=== PATIENT | male | born 1940 | race Caucasian/White ===

== ENCOUNTER 2021-11-09 08:42 | Inpatient (IN) | payer MEDICARE, OTHER, SELFPAY ==
[2021-11-09] VITALS (29 sets, daily range): BP systolic 90–168; BP diastolic 53–89; PULSE 58–92; RESP 14–20; TEMP 36.1–38.4; O2SAT 94–99; BMI 27.1; BMI 27.2
--- NOTE | 2021-11-09 | CA_ITS ---
APPROVED REPORT EXAM: Comprehensive 2D, Doppler, and color-flow Echocardiogram Orthopedic Brace Maker: Patricia Colon, RCS, RVS Ht: 5 ft 11 in Wt: 195lbs BSA: 2.09 BP: 110/62 mmHg Indications: Elevated tropnin, Weakness, Murmur, Anemia 2D Dimensions LVOT 1.96 cm (M/F) 1.5-2.5 LA Volume 37.20 mL LA Volume Index 17.80 mL/m2 (M/F) 16-34 M-Mode Dimensions RVDd 2.82 cm (0.9-2.6) LA Diam 4.26 cm (1.9-4.0) LVDd 5.35 cm (3.5-5.7) Ao Diam 4.39 cm (2.0-3.7) LVDs 3.26 cm (3.5-5.7) IVSd 1.17 cm (0.6-1.1) PWd 1.21 cm (0.6-1.1) EF (Teich) 69.10% EPSs 0.38 cm FS 39.10% EDV (Teich) 138.30 mL TAPSE 2.02 (<1.7) ESV (Teich) 42.80 mL LV Diastology E Decel Time 343.00 (160-240 msec) E/A Ratio 0.55 MED E' 6.20 (< 7 cm/sec) MED A' 13.40 cm/s E'/MED E' Ratio 6.82 (>14) LAT E' 5.70 (<10 cm/sec) LAT A' 10.30 cm/s E/LAT E' Ratio 7.42 (>14) Aortic Valve LVOT Max 104.00 (70-110 cm/s) LVOT VTI 21.79 cm AoV Peak Joel. 139.00 (50-130 cm/s) AI PHT 487.00 ms AO Peak GR. 7.70 mmHg AO Mean GR. 4.30 (<5 mmHg) AO VTI 30.80 (18-25 cm) MYLENE (VTI) 2.13 (2.5-4.5 cm2) Mitral Valve MV A Velocity 77.00 (40-130 cm/s) E/A Ratio 0.55 MV Decel. Time 343.00 (160-240 ms) Pulmonary Valve PV Peak Velocity 74.00 (50-150 cm/s) Tricuspid Valve TR P. Velocity 236.00 cm/s RAP Estimate 10.00 mmHg RVSP 32.20 mmHg Left Ventricle Left atrium is mildly enlarged, left ventricle is normal size, mild concentric left ventricular hypertrophy, visually estimated ejection fraction 55% with no regional wall motion abnormality, grade 1 diastolic dysfunction seen without tissue Doppler evidence of raise left atrial pressure. Right Ventricle Right atrium and right ventricle are normal size and contractility. Aortic Valve Aortic valve is minimally thickened and fibrosed, there is no aortic stenosis, there is trace aortic insufficiency. Mitral Valve Mitral valve grossly normal, there is trace mitral regurgitation. Tricuspid Valve Tricuspid valve grossly normal, there is trace tricuspid regurgitation, tricuspid regurgitation jet velocity is inadequate for calculation of the right ventricular systolic pressure. Pulmonic Valve Pulmonic valve is poorly visualized. Great Vessels Aortic root is normal size. Inferior vena cava is poorly visualized. Pericardium No significant pericardial effusion. Conclusion 1. Mildly enlarged left atrium, normal left ventricular size, mild concentric left ventricular hypertrophy, visually estimated ejection fraction 55% with no regional wall motion abnormality, grade 1 diastolic dysfunction seen without tissue Doppler evidence of raise left atrial pressure. 2. Trace aortic, mitral and tricuspid regurgitation. 3. No significant pericardial effusion. 4. Inferior vena cava is poorly visualized. Electronically signed by : Ron Payne MD 11/09/2021 20:02:44
--- NOTE | 2021-11-09 | IR_ITS ---
APPROVED REPORT Patient Location: Inpatient Heading Machine Operator: ALIN Kent RT (R) PROCEDURES Left heart catheterization Left ventriculogram Selective coronary angiogram Drug-eluting stent deployment to the proximal mid and distal left main artery Drug-eluting stent deployment to the proximal and mid circumflex artery Drug-eluting stent deployment to the proximal first obtuse marginal artery Drug-eluting stent deployment to the proximal dominant right coronary followed by drug-eluting stent deployment to the distal dominant right coronary INDICATION Acute non-ST elevation myocardial infarction, Coronary artery disease Informed consent was obtained prior to the procedure. COMPLICATIONS NONE Estimated Blood Loss: LESS THAN 10 ML TECHNIQUE One percent lidocaine used to anesthetize the right anterior aspect of the wrist. The right radial artery was accessed via the Seldinger technique. A 6 Irish sheath was placed in the right radial artery. 2.5 mg of verapamil, 800 mcg of nitroglycerin, 1mg Lidocaine and 5000 U Heparin were given through the arterial sheath. The papa catheter was also used to perform left heart catheterization, left ventriculogram and selective coronary angiogram. At the end of the procedure therapeutic heparin was administered giving a therapeutic ACT and the guide catheter was placed in the left main artery. A Choice PT extra-support wire was placed into the ramus intermedius for guide support followed by an additional Choice PT in the true circumflex artery. A 2.5 x 12 mm resolute Andrea stent was deployed at 20 artemio reducing the severe stenosis to 0%. The wire was pulled back and placed into a large first obtuse marginal artery where predilatation was performed using a 2.5 mm balloon. An additional 2.5 x 22 mm resolute Andrea stent was then placed distal to the first stent yet still overlapping it extending into the first obtuse marginal artery and deployed at 22 artemio. Excellent angiographic results were obtained. Now a 3.5 x 18 mm resolute Andrea stent was placed in the distal left main artery extending into the proximal circumflex artery and deployed at 20 artemio. A 3 mm x 8 mm stent was then placed between the 3.5 and the first 2.5 mm stent and deployed at 20 artemio to connect the 2 stents to make sure there is no edge stent restenosis. A 4 x 8 mm balloon was then placed in the distal left main artery and deployed at 20 artemio and pulled back and placed into the proximal portion of the stent at 20 artemio. Excellent angiographic results were obtained with JANETT-3 flow being present before and after procedure. The guide catheter was then pulled back and placed into the right coronary artery where the same wire was placed distally. A 3.5 x 18 mm resolute [place] stent was placed distally and deployed at 20 artemio reducing the severe stenosis to 0%. An additional 3.5 x 18 mm resolute [place] stent was then placed proximally and deployed at 20 artemio reducing the severe stenosis to 0%. Excellent angiographic results were obtained with JANETT-3 flow being present before and after the procedure. At the end of procedure the apparatus was removed the sheath was removed and hemostasis was achieved using TR banding patient was transferred to the postop putting in stable condition ANGIOGRAPHIC RESULTS The left main artery Has a distal 70 to 80% stenosis The left anterior descending artery Ostially occluded but fills entirely via large [id number] collaterals from the dominant right coronary The circumflex artery Is nondominant yet still large and gives rise to a high small ramus intermedius. The circumflex artery has a proximal concentric 90% stenosis. It gives rise to a large first obtuse marginal artery which a
--- NOTE | 2021-11-09 08:41 | ECG_ITS ---
APPROVED REPORT Exam: Resting ECG HR:68 bpm ECG Measurements Heart Rate 68 AXES ND 144 P 13 QRSd 88 QRS -16 QT 426 T 0 QTc 442 Conclusion SINUS RHYTHM NONSPECIFIC T-WAVE ABNORMALITY BORDERLINE ECG UNCONFIRMED REPORT Electronically signed by : Yehuda Huerta MD 11/12/2021 16:10:21
--- NOTE | 2021-11-09 08:48 | HMH.EDGENADL ---
ED Disposition Clinical Impression: Elevated troponin, Weakness, Multiple falls, Parkinson disease Rhabdomyolysis Qualifiers: Rhabdomyolysis type: traumatic Encounter type: initial encounter Qualified Code(s): T79.6XXA - Traumatic ischemia of muscle, initial encounter Disposition: Admitted as Observation Condition on Discharge: Fair Referrals: Provider,Referral, [Primary Care Provider] - - Critical Care Critical Care Time: No Attestation: On , the high probability of a clinically significant, sudden or life threatening deterioration of the following system(s) required my full and direct attention, intervention and personal management. The time I documented below is in addition to time spent performing reported procedures but includes the following listed in this critical care notation. Medical Decision Making - Jules Inquiry Pt receiving controlled substance: No Vital Signs: 11/09/21 08:42 Temperature 98.5 F Temperature Source Oral Pulse Rate [Left Radial] 74 Respiratory Rate 16 Blood Pressure [Right Arm] 110/62 Blood Pressure Mean [Right Arm] 78 Blood Pressure Source [Right Arm] Automatic Cuff Blood Pressure Position [Right Arm] Sitting 02 Sat by Pulse Oximetry 94 L Oxygen Delivery Method Room Air - Lab Data Lab Results 11/09/21 08:55: WBC 7.4, RBC 3.68 L, Hgb 12.2 L, Hct 37.5 L, MCV 101.9 H, MCH 33.1 H, MCHC 32.4, RDW 13.2, Plt Count 191, MPV 8.2, Neut % (Auto) 77.1, Lymph % (Auto) 15.0, [place] % (Auto) 7.1, Eos % (Auto) 0.1, Baso % (Auto) 0.7, Neut # (Auto) 5.7, Lymph # (Auto) 1.1, [place] # (Auto) 0.5, Eos # (Auto) 0.0, Baso # (Auto) 0.1 11/09/21 08:55: Sodium 133 L, Potassium 4.0, Chloride 101, Carbon Dioxide 26, Anion Gap 10.0, BUN 22 H, Creatinine 1.10, Estimated Creat Clear 66, Estimated GFR 64, Est GFR ( Amer) 78, Glucose 137 H, Calcium 8.1 L, Total Bilirubin 0.8, AST 93 H, ALT 11 L, Alkaline Phosphatase 103, Total Creatine Kinase 1486 H*, Troponin I 0.11 H, Total Protein 6.9, Albumin 3.7, Globulin 3.2, Albumin/Globulin Ratio 1.2 11/09/21 08:55: SARS-CoV-2 (PCR) Not detected, Influenza A Untype (PCR) Not detected, Influenza Type B (PCR) Not detected 11/09/21 09:19: Urine Color Yellow, Urine Appearance Clear, Urine pH 6.0, Ur Specific [place] <= 1.005, Urine Protein Negative, Urine Glucose (UA) Negative, Urine Ketones Negative, Urine Blood Negative, Urine Nitrate Negative, Urine Bilirubin Negative, Urine Urobilinogen 0.2, Ur Leukocyte Esterase Negative, Urine RBC None, Urine WBC 3-5, Ur Squamous Epith Cells 5-10, Urine Bacteria None 11/09/21 09:19: Lactate 1.3 Result diagrams: 11/09/21 08:55 11/09/21 08:55 Orders (Tests/Meds): ED MEDICATIONS Generic Name Dose Route Start Last Admin Trade Name Freq PRN Reason Stop Dose Admin Sodium Chloride 1,000 mls @ 100 mls/hr 11/09/21 11:15 Sod Chlor 0.9% 1000ml Bag IV 12/09/21 11:14 .Q10H ROMMEL Discontinued Medications Generic Name Dose Route Start Last Admin Trade Name Freq PRN Reason Stop Dose Admin Sodium Chloride 1,000 ml 11/09/21 09:41 11/09/21 10:02 Sodium Chloride 0.9% 1000ml Bag IV 11/09/21 09:42 1,000 ml BOLUS ONE Administration ORDERS Category Date Time Status Consult to Cardiology [CONS] Routine Cons 11/09/21 11:05 Active Consult to Urology [CONS] Routine Cons 11/09/21 11:05 Active BMP [Basic Metabolic Panel] AMLAB Lab 11/10/21 06:00 Ordered CPK [Creatine Kinase] AMLAB Lab 11/10/21 06:00 Ordered TSH [Thyroid Stimulating Hormone] Stat Lab 11/09/21 10:48 Ordered Troponin I Q3H Lab 11/09/21 10:48 Ordered Troponin I Q3H Lab 11/09/21 15:15 Ordered Blood Culture Stat Micro 11/09/21 09:35 Received CA echo doppler complete Stat Y 11/09/21 11:05 Ordered - Radiology Data #1 Image(s): Chest, Pelvis Image Reviewed: Yes I have reviewed radiologist's interpretation Procedure(s): XR chest portable Accession Number(s): [id number] cc: Milton Shepard MD; Provider,Referral ~ FI
--- NOTE | 2021-11-09 09:08 | XR_ITS ---
FINAL REPORT CLINICAL HISTORY: falls FINDINGS: PELVIS A single view demonstrates no acute fracture or dislocation. There are moderate degenerative changes of the hips. There is moderate to severe degenerative change in the lower lumbar spine. IMPRESSION: Degenerative changes without acute fracture. Reviewed, Interpreted and Dictated by Milton Shepard III, MD Transcribed by Sudha Jackson Authenticated by Milton Shepard III, MD on 11/09/2021 10:37:[address] [facility]
--- NOTE | 2021-11-09 09:08 | CT_ITS ---
FINAL REPORT CLINICAL HISTORY: multiple falls, weak FINDINGS: Axial images of the head were obtained without contrast. Coronal reformatted images were also obtained. This study was performed with techniques to keep radiation doses as low as reasonably achievable (ALARA). Individualized dose reduction techniques using automated exposure control or adjustment of mA and/or kV according to the patient's size were employed. There is generalized age-appropriate atrophy. Periventricular low-attenuation areas are seen consistent with moderate chronic ischemic changes. There is left frontal encephalomalacia. There is no evidence of intracranial hemorrhage or mass. There is no evidence of acute infarct. There is no evidence of shift of the midline structures. No skull abnormality is seen on the bone window images. There is mild mucosal thickening of the ethmoid air cells. IMPRESSION: Atrophy and moderate periventricular chronic ischemic changes. No acute intracranial abnormality identified. Reviewed, Interpreted and Dictated by Milton Shepard III, MD Transcribed by Sudha Jackson Authenticated by Milton Shepard III, MD on 11/09/2021 10:37:54 AM [facility]
--- NOTE | 2021-11-09 09:08 | XR_ITS ---
FINAL REPORT CLINICAL HISTORY: falls, possible fever, weak FINDINGS: SINGLE VIEW CHEST The heart is normal in size. The mediastinum is unremarkable. There is bibasilar atelectasis. There is no pneumothorax. IMPRESSION: Bibasilar atelectasis. Reviewed, Interpreted and Dictated by Milton Shepard III, MD Transcribed by Sudha Jackson Authenticated by Milton Shepard III, MD on 11/09/2021 10:37:57 AM [facility]
--- NOTE | 2021-11-09 09:15 | CT_ITS ---
FINAL REPORT CLINICAL HISTORY: falls, bruised back FINDINGS: Axial CT images of the thoracic spine were obtained without contrast. Sagittal and coronal reformatted images were also obtained. This study was performed with techniques to keep radiation doses as low as reasonably achievable (ALARA). Individualized dose reduction techniques using automated exposure control or adjustment of mA and/or kV according to the patient's size were employed. There is no evidence of fracture. Moderate degenerative changes are present. Multilevel osteophytes are noted. There is mild rightward curvature. There is no significant central canal stenosis. IMPRESSION: Moderate degenerative changes without acute fracture. Reviewed, Interpreted and Dictated by Milton Shepard III, MD Transcribed by Sudha Jackson Authenticated by Milton Shepard III, MD on 11/09/2021 10:37:55 AM [facility]
--- NOTE | 2021-11-09 09:15 | CT_ITS ---
FINAL REPORT CLINICAL HISTORY: falls, bruised back FINDINGS: Axial CT images of the cervical spine were obtained without contrast. Sagittal and coronal reformatted images were also obtained. This study was performed with techniques to keep radiation doses as low as reasonably achievable (ALARA). Individualized dose reduction techniques using automated exposure control or adjustment of mA and/or kV according to the patient's size were employed. There is no evidence of fracture or dislocation. Moderate degenerative changes are present. There is multilevel neural foraminal narrowing. There is a chronic calcification posterior to C5. IMPRESSION: Degenerative changes without acute fracture. Reviewed, Interpreted and Dictated by Milton Shepard III, MD Transcribed by Sudha Jackson Authenticated by Milton Shepard III, MD on 11/09/2021 10:37:[address] [facility]
--- NOTE | 2021-11-09 09:15 | CT_ITS ---
FINAL REPORT CLINICAL HISTORY: falls, bruised back FINDINGS: Axial imaging of the lumbar spine was obtained without contrast. Sagittal and coronal reformatted images were also obtained and reviewed.This study was performed with techniques to keep radiation doses as low as reasonably achievable (ALARA). Individualized dose reduction techniques using automated exposure control or adjustment of mA and/or kV according to the patient's size were employed. There is no fracture. Moderate and severe degenerative changes are present. There is disc space narrowing, osteophytes, facet arthropathy, and vacuum phenomenon at multiple levels. There is multilevel neural foraminal narrowing, greatest at L4-5 and L5-S1. A 5 mm right renal stone is identified. IMPRESSION: Multilevel degenerative change without acute bony abnormality. Reviewed, Interpreted and Dictated by Milton Shepard III, MD Transcribed by Sudha Jackson Authenticated by Milton Shepard III, MD on 11/09/2021 10:37:[address] [facility]
[2021-11-09 09:25] LABS: Coronavirus 19, PCR Not Detected (NotDetected); Influenza A, PCR Not Detected (NotDetected); Influenza B, PCR Not Detected (NotDetected)
[2021-11-09 09:27] LABS: Chloride 101 mmol/L (98-107); Sodium 133 mmol/L (136-145)
[2021-11-09 09:29] LABS: Alanine Aminotransferase 11 U/L (12-78); Aspartate Amino Transferase 93 U/L (17-59); Blood Urea Nitrogen 22 mg/dl (9-20); Creatinine Clearance Estimated 66 mL/min (50-200); Estimated Glomerular Filt Rate 64 ml/min (>60); GFR (African American) 78 ML/MIN (>60)
[2021-11-09 09:30] LABS: Albumin Level 3.7 g/dl (3.5-5.0); Albumin/Globulin Ratio 1.2 (1.1-1.8); Alkaline Phosphatase 103 U/L (38-126); Bilirubin,Total 0.8 mg/dl (0.2-1.3); Calcium 8.1 mg/dl (8.4-10.2); Carbon Dioxide 26 mmol/L (22.0-30.0); Creatine Kinase 1486 U/L (55-170); Globulin 3.2 g/dL (1.3-3.2); Glucose 137 mg/dl (74-100); Total Protein,Serum 6.9 g/dl (6.3-8.2)
[2021-11-09 09:42] LABS: Troponin I 0.11 ng/ml (0.00-0.034)
[2021-11-09 09:44] LABS: Basophils # 0.1 K/mm3 (0-0.2); Basophils % 0.7 % (0.1-2.0); Eosinophils % 0.1 % (0.1-12.0); Hematocrit 37.5 % (42.0-52.0); Hemoglobin 12.2 g/dL (14.1-18.0); Lymphocytes # 1.1 K/mm3 (0.7-4.5); Mean Corpuscular HGB Conc 32.4 g/dL (31.8-35.4); Mean Corpuscular Hemoglobin 33.1 pg (27.0-31.2); Mean Corpuscular Volume 101.9 fl (80-94); Mean Platelet Volume 8.2 fl (7.4-10.4); Monocytes # 0.5 K/mm3 (0.1-1.0); Monocytes % 7.1 % (1.7-9.3); Neutrophils # 5.7 K/mm3 (1.8-7.8); Neutrophils % 77.1 % (37.0-80.0); Platelet Count 191 K/mm3 (142-424); Red Blood Count 3.68 M/mm3 (4.60-6.20); Red Cell Distribution Width 13.2 % (11.5-17.5); White Blood Count 7.4 K/mm3 (4.8-10.8)
[2021-11-09 09:47] LABS: Microscopic,Cath URINE MICROSCOPIC (MICROSCOPIC)
[2021-11-09 09:50] LABS: Appearance,Urine/Cath CLEAR (Clear); Bilirubin,Cath Negative (Negative); Blood, Urine/Cath Negative (Negative); Color,Urine/Cath YELLOW (Yellow); Glucose,Urine/Cath (UA) Negative (Negative); Ketones,Urine/Cath Negative (Negative); Leukocyte Esterase,Cath Negative (Negative); Nitrate,Cath Negative (Negative); Protein,Urine/Cath Negative (Negative); Specific Gravity, Urine/Cath <= 1.005 (1.005-1.030); Urobilinogen,Cath 0.2 EU/dl (0.2)
[2021-11-09 10:19] LABS: Lactic Acid 1.3 mmol/L (0.7-2.1)
--- NOTE | 2021-11-09 10:54 | PC.NURSE ---
Called Dr Carter for consult on patient, he was with patient, and will call back.
[2021-11-09 11:46] LABS: Troponin I 0.09 ng/ml (0.00-0.034)
--- NOTE | 2021-11-09 11:50 | PC.NURSE ---
Martín to see pt, tired to talk to , unable to find in the waiting room
--- NOTE | 2021-11-09 11:54 | HMH.CNCARD ---
History of Present Illness Consult date: 11/09/21 Requesting physician: Pierre Hassan Chief complaint: fall History of present illness: This is a 81-year-old gentleman who presented to the emergency department after a falling episode. The patient was brought in via ambulance. He does have Parkinson's disease. The patient is very lethargic when I am in the room and is not answering majority of my questions. He does report that he is having no chest pain no chest pressure and no shortness of breath. He also denied having any lower extremity edema. He also denied having any fever, chills, nausea, vomiting, diarrhea, PND or orthopnea. He was unable to answer any of my questions about his history. Most of his history is gathered from his medical records. His states that for the last 4 days he has been having difficulty ambulating and really weak and could not stand on his own. This was a change for him. Today he was walking to the bathroom and using a small table for support when it broke and he fell. His reported that he has fallen four times in the last month. Upon arrival to the emergency department the patient is found to have an elevated troponin at 0.11 consistent with a non-ST elevation myocardial infarction. [facility] History I have reviewed the patient's past medical history: Yes Medical History: Reports:: Coronary Artery Disease (2 stents), Hyperlipidemia, Hypertension *Have you ever received a pneumonia vaccine?: Yes *Have you received a flu vaccine this season?: Yes Other Medical History: Reports: Thyroid Disease, Other (Parkinson's Disease) Other Surgeries: Yes: No Previous Surgery - *Social History Smoking Status: Never smoker Alcohol Intake: never *Occupational Status:: other *Travel in the last 8 weeks: None Family Hx:: No significant family history Meds Home Medications Medication Instructions Recorded Confirmed Type Carbidopa/Levodopa [Carbidopa-Levo 2 each PO QID 11/09/21 11/09/21 History ER 25-100 Tab] Clopidogrel Bisulfate [Clopidogrel 75 mg PO DAILY 11/09/21 11/09/21 History 75mg Tab] Gabapentin 300 mg PO TID 11/09/21 11/09/21 History Levothyroxine Sodium [Euthyrox] 150 mcg PO DAILY 11/09/21 11/09/21 History Loratadine 10 mg PO DAILY 11/09/21 11/09/21 History Pramipexole Di-HCl [Mirapex 0.25 mg PO BID 11/09/21 11/09/21 History 0.125mg tablet] Sildenafil Citrate 50 mg PO DAILY PRN 11/09/21 11/09/21 History Tizanidine HCl [Zanaflex 4mg 4 mg PO BID 11/09/21 11/09/21 History tablet] Allergies Allergy/AdvReac Type Severity Reaction Status Date / Time No Known Allergies Allergy Verified 11/09/21 09:26 Exam Vital signs and Labs for Last 24 Hours: Temp Pulse Resp BP Pulse Ox 98.5 F 74 16 110/62 94 L 11/09/21 08:42 11/09/21 08:42 11/09/21 08:42 11/09/21 08:42 11/09/21 08:42 Laboratory Results - last 24 hr 11/09/21 08:55: WBC 7.4, RBC 3.68 L, Hgb 12.2 L, Hct 37.5 L, MCV 101.9 H, MCH 33.1 H, MCHC 32.4, RDW 13.2, Plt Count 191, MPV 8.2, Neut % (Auto) 77.1, Lymph % (Auto) 15.0, [place] % (Auto) 7.1, Eos % (Auto) 0.1, Baso % (Auto) 0.7, Neut # (Auto) 5.7, Lymph # (Auto) 1.1, [place] # (Auto) 0.5, Eos # (Auto) 0.0, Baso # (Auto) 0.1 11/09/21 08:55: Sodium 133 L, Potassium 4.0, Chloride 101, Carbon Dioxide 26, Anion Gap 10.0, BUN 22 H, Creatinine 1.10, Estimated Creat Clear 66, Estimated GFR 64, Est GFR ( Amer) 78, Glucose 137 H, Calcium 8.1 L, Total Bilirubin 0.8, AST 93 H, ALT 11 L, Alkaline Phosphatase 103, Total Creatine Kinase 1486 H*, Troponin I 0.11 H, Total Protein 6.9, Albumin 3.7, Globulin 3.2, Albumin/Globulin Ratio 1.2 11/09/21 08:55: SARS-CoV-2 (PCR) Not detected, Influenza A Untype (PCR) Not detected, Influenza Type B (PCR) Not detected 11/09/21 09:19: Urine Color Yellow, Urine Appearance Clear, Urine pH 6.0, Ur Specific [place] <= 1.005, Urine Protein Negative, Urine Glucose (UA) Negative, Urine Ketones Negative, Urine Blood Negative, Urine Nitrate Negative, U
[2021-11-09 12:05] LABS: Thyroid Stimulating Hormone 0.02 uIU/mL (0.465-4.68)
--- NOTE | 2021-11-09 13:30 | PC.NURSE ---
house designer called, states pt will go to room 210, room must be cleaned and they will notify us when room is ready
--- NOTE | 2021-11-09 13:42 | HMH.PHAVTE ---
[facility] Pharmacy VTE Monitoring - Patient Demographics Admission date: 11/09/21 Report Date: 11/09/21 Time: 13:42 Allergies/Adverse Reactions: Patient Allergies No Known Allergies Allergy (Verified 11/09/21 09:26) Height: 1.8 m Weight: 88.451 kg Patient Problems: Current Active Problems Elevated troponin (Acute) Rhabdomyolysis (Acute) Weakness (Acute) Multiple falls (Acute) Parkinson disease (Acute) Non-STEMI (non-ST elevated myocardial infarction) (Acute) CAD (coronary artery disease) (Chronic) HTN (hypertension) (Chronic) HLD (hyperlipidemia) (Chronic) - VTE Risk Labs: VTE Related Lab Results Hgb 12.2 g/dL (14.1-18.0) L 11/09/21 08:55 Hct 37.5 % (42.0-52.0) L 11/09/21 08:55 Plt Count 191 K/mm3 (142-424) 11/09/21 08:55 BUN 22 mg/dl (9-20) H 11/09/21 08:55 Creatinine 1.10 mg/dl (0.66-1.25) 11/09/21 08:55 Estimated Creat Clear 66 mL/min (50-200) 11/09/21 08:55 - Prophylaxis VTE Prophylaxis Ordered?: Yes Types of VTE Prophylaxis: TEDS Knee High Location of Applied Device: Bilateral Lower Extremeties
--- NOTE | 2021-11-09 14:14 | PC.NURSE ---
report called yuriy quesada
--- NOTE | 2021-11-09 15:16 | HMH.CONS ---
*Admission Date: 11/09/21 *Reason for consult:: Spraying stream *History of present illness: Patient is an 81-year-old white male who presented to the emergency room today after suffering a fall at home. He has a history of Parkinson's disease. Patient has been worked up extensively today with a CT of the spine and head as well as lab work, chest x-ray. Patient gives additional history sprain urine everywhere when he goes to the restroom. He also told the ER physician that he had a small hole at the base of his scrotum but physical examination by the ER doctor did not show any abnormalities. [facility] History Medical History: Reports:: Coronary Artery Disease (2 stents), Hyperlipidemia, Hypertension *Have you ever received a pneumonia vaccine?: Yes *Have you received a flu vaccine this season?: Yes Other Medical History: Reports: Thyroid Disease, Other (Parkinson's Disease) Other Surgeries: Yes: No Previous Surgery - *Social History Smoking Status: Never smoker Alcohol Intake: never *Occupational Status:: other *Travel in the last 8 weeks: None Family Hx:: No significant family history Review of Systems - Review of Systems Review of systems:: pertinent systems reviewed and negative unless documented below - *Neurologic Reports abnormal walking, Reports unsteadiness, Reports frequent falls Meds Home Medications Medication Instructions Recorded Confirmed Type Bisoprolol Fumarate [Bisoprolol 5 mg PO DAILY 11/09/21 11/09/21 History 5mg Tablet] Carbidopa/Levodopa 2 tab PO QID 11/09/21 11/09/21 History [Carbidopa/Levodopa 25/100mg Tablet] Clopidogrel Bisulfate [Clopidogrel 75 mg PO DAILY 11/09/21 11/09/21 History 75mg Tab] Gabapentin 300 mg PO TID 11/09/21 11/09/21 History Levothyroxine Sodium [Euthyrox] 150 mcg PO DAILY 11/09/21 11/09/21 History Loratadine 10 mg PO DAILY 11/09/21 11/09/21 History Pramipexole Di-HCl [Mirapex 0.25 mg PO TID 11/09/21 11/09/21 History 0.125mg tablet] Sildenafil Citrate 50 mg PO DAILY PRN 11/09/21 11/09/21 History Tizanidine HCl [Zanaflex 4mg 4 mg PO BIDP PRN 11/09/21 11/09/21 History tablet] Allergies Allergy/AdvReac Type Severity Reaction Status Date / Time No Known Allergies Allergy Verified 11/09/21 09:26 Exam Vital signs and Labs for Last 24 Hours: Temp Pulse Resp BP Pulse Ox 98.5 F 92 H 18 148/85 H 96 11/09/21 14:30 11/09/21 14:30 11/09/21 14:30 11/09/21 14:30 11/09/21 14:30 Laboratory Results - last 24 hr 11/09/21 08:55: WBC 7.4, RBC 3.68 L, Hgb 12.2 L, Hct 37.5 L, MCV 101.9 H, MCH 33.1 H, MCHC 32.4, RDW 13.2, Plt Count 191, MPV 8.2, Neut % (Auto) 77.1, Lymph % (Auto) 15.0, [place] % (Auto) 7.1, Eos % (Auto) 0.1, Baso % (Auto) 0.7, Neut # (Auto) 5.7, Lymph # (Auto) 1.1, [place] # (Auto) 0.5, Eos # (Auto) 0.0, Baso # (Auto) 0.1 11/09/21 08:55: Sodium 133 L, Potassium 4.0, Chloride 101, Carbon Dioxide 26, Anion Gap 10.0, BUN 22 H, Creatinine 1.10, Estimated Creat Clear 66, Estimated GFR 64, Est GFR ( Amer) 78, Glucose 137 H, Calcium 8.1 L, Total Bilirubin 0.8, AST 93 H, ALT 11 L, Alkaline Phosphatase 103, Total Creatine Kinase 1486 H*, Troponin I 0.11 H, Total Protein 6.9, Albumin 3.7, Globulin 3.2, Albumin/Globulin Ratio 1.2 11/09/21 08:55: SARS-CoV-2 (PCR) Not detected, Influenza A Untype (PCR) Not detected, Influenza Type B (PCR) Not detected 11/09/21 09:19: Urine Color Yellow, Urine Appearance Clear, Urine pH 6.0, Ur Specific [place] <= 1.005, Urine Protein Negative, Urine Glucose (UA) Negative, Urine Ketones Negative, Urine Blood Negative, Urine Nitrate Negative, Urine Bilirubin Negative, Urine Urobilinogen 0.2, Ur Leukocyte Esterase Negative, Urine RBC None, Urine WBC 3-5, Ur Squamous Epith Cells 5-10, Urine Bacteria None 11/09/21 09:19: Lactate 1.3 11/09/21 11:20: Troponin I 0.09 H, TSH 0.02 L I & O for Last 24 hours: Intake & Output 11/06/21 11/07/21 11/08/21 11/09/21 23:59 23:59 23:59 23:59 Weight 88.451 kg Internal
[2021-11-09 16:04] LABS: CATHL Activated Clotting Time 231 SEC (74-125)
--- NOTE | 2021-11-09 16:09 | PC.NURSE ---
Received report from Humza Bales RN @ this time
--- NOTE | 2021-11-09 16:29 | PC.NURSE ---
Pt arrived to the floor at this jj e
--- NOTE | 2021-11-09 19:06 | PC.NURSE ---
Pt has done well since arriving to the floor. Pt remains A&Ox4. Post op vitals have been stable. Large bruise noted to pt's back. Bilateral knees have scrapes noted to them. Jarvis cath draining clear, orange urine. Rt radial cath site still has trband on. Site remains free of bleeding and no hematoma noted. No other acute changes or complaints, will continue to monitor.
[2021-11-10] VITALS (11 sets, daily range): BP systolic 105–193; BP diastolic 57–91; PULSE 47–96; RESP 18–22; TEMP 36.7–39.2; O2SAT 93–96; BMI 26.7; BMI 26.5
--- NOTE | 2021-11-10 03:58 | PC.NURSE ---
Addendum entered by Charlotte Brown RN 11/10/21 05:02: Patient has became afebrile at this time. Patient had a rectal temperature of 101.1. Patient treated per MAR. Will continue to monitor. Original Note: Patient has rested well thus far in this RN's shift. Patient became febrile at approximately 2315 and was treated per MAR with favorable results. Patient has voiced no complaints to this RN. Will continue to monitor.
--- NOTE | 2021-11-10 05:20 | PC.NURSE ---
Patient has been febrile twice this RN's shift. Patient has been treated per MAR. Will continue to monitor. Patient has voiced no concerns to this RN.
--- NOTE | 2021-11-10 06:22 | XR_ITS ---
FINAL REPORT CLINICAL HISTORY: sob COMPARISON: 11/09/2021 FINDINGS: SINGLE VIEW CHEST The heart is normal in size. The mediastinum is unremarkable. There are partially improved bibasilar opacities with persistent mild opacities. There is no pneumothorax. IMPRESSION: Partially improved but persistent bibasilar opacities Reviewed, Interpreted and Dictated by Milton Shepard III, MD Transcribed by Sudha Jackson Authenticated by Milton Shepard III, MD on 11/10/2021 07:33:36 AM [facility]
[2021-11-10 06:47] LABS: Mean Platelet Volume 8.4 fl (7.4-10.4); Monocytes # 0.5 K/mm3 (0.1-1.0)
[2021-11-10 06:54] LABS: Alanine Aminotransferase 9 U/L (12-78); Aspartate Amino Transferase 93 U/L (17-59); Bilirubin,Direct 0.1 mg/dl (0.0-0.4); Bilirubin,Indirect 0.4 mg/dL (0.0-0.9); Bilirubin,Total 0.5 mg/dl (0.2-1.3); Bilirubin,Unconjugated 0.4 mg/dL (0.0-1.1); Chol/HDL Ratio 3.3 (1-3.5); Cholesterol 92 mg/dl (140-200); HDL Cholesterol 28 mg/dl (40-60); Total Protein,Serum 5.8 g/dl (6.3-8.2); Triglycerides 83 mg/dl (30-150); VLDL Cholesterol 17 mg/dL (0-40)
[2021-11-10 06:56] LABS: Anion Gap 8.1 mEq/L (5-15); Blood Urea Nitrogen 19 mg/dl (9-20); Calcium 7.8 mg/dl (8.4-10.2); Carbon Dioxide 25 mmol/L (22.0-30.0); Chloride 109 mmol/L (98-107); Creatine Kinase 1109 U/L (55-170); Creatinine Clearance Estimated 71 mL/min (50-200); Estimated Glomerular Filt Rate 72 ml/min (>60); GFR (African American) 87 ML/MIN (>60); Glucose 104 mg/dl (74-100); Potassium 4.1 mmoL/L (3.5-5.1); Sodium 138 mmol/L (136-145)
[2021-11-10 07:05] LABS: Direct LDL Cholesterol 39.94 mg/dL (100-129)
--- NOTE | 2021-11-10 07:28 | HMH.PHAINT ---
HOME MEDICATION LIST VERIFIED USING LIST FROM [facility]
[2021-11-10 07:46] LABS: Basophils # 0.1 K/mm3 (0-0.2); Basophils % 0.9 % (0.1-2.0); Eosinophils % 0.3 % (0.1-12.0); Hematocrit 33.7 % (42.0-52.0); Lymphocytes # 1.5 K/mm3 (0.7-4.5); Mean Corpuscular HGB Conc 31.9 g/dL (31.8-35.4); Mean Corpuscular Hemoglobin 33.1 pg (27.0-31.2); Mean Corpuscular Volume 103.5 fl (80-94); Monocytes % 7.6 % (1.7-9.3); Neutrophils # 4.6 K/mm3 (1.8-7.8); Neutrophils % 69.3 % (37.0-80.0); Platelet Count 177 K/mm3 (142-424); Red Blood Count 3.26 M/mm3 (4.60-6.20); Red Cell Distribution Width 13.5 % (11.5-17.5); White Blood Count 6.6 K/mm3 (4.8-10.8)
[2021-11-10 07:52] LABS: Hemoglobin 10.8 g/dL (14.1-18.0)
--- NOTE | 2021-11-10 08:22 | CT_ITS ---
FINAL REPORT CLINICAL HISTORY: abdominal pain FINDINGS: CT OF THE ABDOMEN AND PELVIS WITH AND WITHOUT CONTRAST: The patient was injected with IV contrast. Oral contrast was also administered. Axial images were obtained from the lung bases to the pubic symphysis by computed tomography. Precontrast images were also obtained. ABDOMEN: There is bibasilar atelectasis. There is a calcified granuloma in the left lung base. The heart is normal in size. The gallbladder is moderately distended. There are several less than 1 cm probable cyst in the liver. The spleen is unremarkable. No adrenal masses present. The pancreas is normal. There is a 19 mm cystic mass in the upper pole of the right kidney, may represent a complex cyst or possibly calyceal diverticulum. Multiple bilateral renal cysts are identified. There is questionable small contrast in the renal collecting system versus renal stones. Note is made of moderate vascular calcification. The aorta is normal in caliber. There is no free fluid or adenopathy. PELVIS: The appendix is dilated measuring 9 mm but without adjacent inflammation or convincing appendicitis. A Jarvis catheter is present. There is bladder wall thickening, likely inflammatory. There is sigmoid and descending diverticulosis without evidence of diverticulitis. There is no free fluid or adenopathy identified. IMPRESSION: Right renal mass, may represent complex cyst versus calyceal diverticulum. Small amount of contrast in the renal collecting system versus renal stones. Sigmoid and descending diverticulosis without evidence of diverticulitis. Reviewed, Interpreted and Dictated by Milton Shepard III, MD Transcribed by Sudha Jackson Authenticated by Milton Shepard III, MD on 11/10/2021 10:40:32 AM [facility]
--- NOTE | 2021-11-10 09:06 | HMH.HP ---
*Admission Date: 11/09/21 *Chief complaint: weakness *History of present illness: 81-year-old gentleman who presented to the emergency department after a falling episode. The patient was brought in via ambulance. He does have Parkinson's disease. Per ed record states that for the last 4 days he has been having difficulty ambulating and really weak and could not stand on his own. This was a change for him. Today he was walking to the bathroom and using a small table for support when it broke and he fell. His reported that he has fallen four times in the last month. Upon arrival to the emergency department the patient is found to have an elevated troponin at 0.11. Pt denies any chest pressure or pain. Pt keeps stating he has a hole around his bag that if he hold the head of his penis closed he can urinate out of hole and this has been going on for about a month. Pt states he thinks this is what is causing all his problems. [facility] History I have reviewed the patient's past medical history: Yes Medical History: Reports:: Coronary Artery Disease, Hyperlipidemia, Hypertension Denies:: Diabetes Mellitus Type 1, Diabetes Mellitus Type 2 *Have you ever received a pneumonia vaccine?: Yes *Have you received a flu vaccine this season?: Yes Other Medical History: Reports: Hypothyroidism, Thyroid Disease, Other (Parkinson's Disease) Other Surgeries: Yes: No Previous Surgery, Cardiac Catheterization - *Social History Last grade of school completed: Some college Smoking Status: Never smoker Alcohol Intake: never *Occupational Status:: retired Housing: house Household Members: spouse *Travel in the last 8 weeks: None Family Hx:: No significant family history Review of Systems - Review of Systems Review of systems:: pertinent systems reviewed and negative unless documented below - Constitutional Reports fatigue, Reports weakness, Denies body ache(s) - Eyes Denies blurry vision - ENT Reports poor balance, Denies bleeding gums - *Cardiovascular Denies chest pain, Denies chest pain at rest, Denies chest pain with activity - *Respiratory Denies chest congestion - *Gastrointestinal Denies abdominal pain - *Genitourinary Reports other - *Musculoskeletal Denies abnormal walking - Integumentary/Breasts Denies hair loss - *Neurologic Reports abnormal walking, Reports unsteadiness, Reports frequent falls - Psychiatric Denies lack of enjoyment - Endocrine Denies excessive sweating - Hematologic/Lymphatic Denies easy bruising - Allergic/Immunologic Denies GI upset with certain foods Meds Home Medications Medication Instructions Recorded Confirmed Type Bisoprolol Fumarate [Bisoprolol 5 mg PO DAILY 11/09/21 11/09/21 History 5mg Tablet] Carbidopa/Levodopa 2 tab PO QID 11/09/21 11/09/21 History [Carbidopa/Levodopa 25/100mg Tablet] Clopidogrel Bisulfate [Clopidogrel 75 mg PO DAILY 11/09/21 11/09/21 History 75mg Tab] Gabapentin 300 mg PO TID 11/09/21 11/09/21 History Levothyroxine Sodium [Euthyrox] 150 mcg PO DAILY 11/09/21 11/09/21 History Loratadine 10 mg PO DAILY 11/09/21 11/09/21 History Pramipexole Di-HCl [Mirapex 0.25 mg PO TID 11/09/21 11/09/21 History 0.125mg tablet] Sildenafil Citrate 50 mg PO DAILY PRN 11/09/21 11/09/21 History Tizanidine HCl [Zanaflex 4mg 4 mg PO BIDP PRN 11/09/21 11/09/21 History tablet] Allergies Allergy/AdvReac Type Severity Reaction Status Date / Time No Known Allergies Allergy Verified 11/09/21 16:48 Exam Vital signs and Labs for Last 24 Hours: Temp Pulse Resp BP Pulse Ox 98.8 F 96 H 18 174/80 H 96 11/10/21 07:50 11/10/21 07:50 11/10/21 07:50 11/10/21 07:50 11/10/21 07:50 Laboratory Results - last 24 hr 11/09/21 08:55: WBC 7.4, RBC 3.68 L, Hgb 12.2 L, Hct 37.5 L, MCV 101.9 H, MCH 33.1 H, MCHC 32.4, RDW 13.2, Plt Count 191, MPV 8.2, Neut % (Auto) 77.1, Lymph % (Auto) 15.0, [place] % (Auto) 7.1, Eos % (Auto) 0.1, Baso %
--- NOTE | 2021-11-10 10:32 | HMH.PNCARD ---
Subjective Date: 11/10/21 Time: 09:30 Principal diagnosis: non-stemi Interval history: This is an 81-year-old gentleman who presented to the emergency department after a falling episode. He was found to have an elevated troponin consistent with a non-ST elevation myocardial infarction. The patient underwent left cardiac catheterization yesterday with multivessel stenting for a total of 6 stents placed to his coronary arteries. The patient has a chronically occluded LAD which is filling via collaterals. This morning he continues to deny any chest pain or pressure. He denies any shortness of breath or edema. He denies any chills, nausea, vomiting, diarrhea, PND or orthopnea. His only complaint today is a hole that he reports that he has on on his scrotum. He states that if he holds his penis then he will urinate out of this hole in his scrotum. He did have a urology referral but yesterday the patient was in the cardiac [place] when urology came to see him. Urology is not here today. He did spike a fever last night and he has been started on antibiotics and is getting a CT of his abdomen today. Cardiac catheterization shows: The left main artery Has a distal 70 to 80% stenosis The left anterior descending artery Ostially occluded but fills entirely via large [id number] collaterals from the dominant right coronary The circumflex artery Is nondominant yet still large and gives rise to a high small ramus intermedius. The circumflex artery has a proximal concentric 90% stenosis. It gives rise to a large first obtuse marginal artery which also has an ostial 90% stenosis The right coronary artery Is a large dominant vessel and has a proximal concentric 80% stenosis followed by a stent The AMARO ventriculogram reveals Normal 65% The left ventricular end-diastolic pressure 15 mmHg IMPRESSION Critical coronary artery disease as described above most notably with a chronically occluded ostial LAD which is entirely filled via right to left collaterals from a severely diseased dominant right coronary artery Successful stenting of the proximal and distal dominant right coronary artery severe disease reduced to 0% with 2 drug-eluting stents Severe disease in the distal left main artery Successful stenting of the distal left main artery severe disease reduced to 0% with 1 drug-eluting stent Successful stenting of the proximal circumflex artery severe disease reduced to 0% with multiple drug-eluting stents as described above Successful stenting of the large first obtuse marginal artery severe disease distal 0% with 1 drug-eluting stent 4 placed in a contiguous manner PLAN 1. Dual antiplatelet therapy 2. Cardiac rehabilitation 3. Beta-blockers and rate control are important given the proximally occluded LAD which fills via collaterals. The collateral supplying this vessel are large and rich and I do not recommend revascularization of the LAD given the excellent collateralization 4. Risk factor modification 5. Avoidance of tobacco products Echocardiogram shows: 1. Mildly enlarged left atrium, normal left ventricular size, mild concentric left ventricular hypertrophy, visually estimated ejection fraction 55% with no regional wall motion abnormality, grade 1 diastolic dysfunction seen without tissue Doppler evidence of raise left atrial pressure. 2. Trace aortic, mitral and tricuspid regurgitation. 3. No significant pericardial effusion. 4. Inferior vena cava is poorly visualized. Exam Vital signs and Labs for Last 24 Hours: Temp Pulse Resp BP Pulse Ox 98.8 F 96 H 18 174/80 H 96 11/10/21 07:50 11/10/21 07:50 11/10/21 07:50 11/10/21 07:50 11/10/21 07:50 Laboratory Results - last 24 hr 11/09/21 11:20: Troponin I 0.09 H, TSH 0.02 L 11/09/21 16:39: Activated Clotting Time 231 H* 11/10/21 05:48: Sodium 138, Potassium 4.1, Chloride 109 H, Carbon Dioxide 25, Anion Gap 8.1, BUN 19, Creatinine 1.00, Estimated C
--- NOTE | 2021-11-10 10:36 | CA_ITS ---
FINAL REPORT TECHNIQUE: Color Doppler, duplex Doppler and meyers scale sonography of the bilateral neck arterial vasculature was performed. Velocities were measured in the carotid arteries. Stenosis evaluation based on the validated velocity criteria. CLINICAL HISTORY: bilateral carotid bruits, CAD s/p NV with coronary stents, Bradycardia FINDINGS: The peak systolic velocity of the right common carotid artery is 83 cm/s. The peak systolic velocity of the right internal carotid artery is 99 cm/s and end diastolic velocity 26 cm/s. The ICA/CCA ratio is 1.4. A mild amount of plaque is present. The right external carotid artery is patent. The right vertebral artery is patent with antegrade flow. The peak systolic velocity of the left common carotid artery is 144 cm/s. The peak systolic velocity of the left internal carotid artery is 123 cm/s and end diastolic velocity 21 cm/s. The ICA/CCA ratio is 0.86. A mild amount of plaque is present. The left external carotid artery is patent.The left vertebral artery is patent with antegrade flow. IMPRESSION: Less than 50% bilateral carotid stenosis. Bilateral patent vertebral arteries with antegrade flow. Reviewed, Interpreted and Dictated by Milton Shepard III, MD Transcribed by Dinorah Gracia Authenticated by Milton Shepard III, MD on 11/10/2021 12:30:06 PM [facility]
[2021-11-10 10:51] LABS: Alkaline Phosphatase 87 U/L (38-126)
[2021-11-11] VITALS (7 sets, daily range): BP systolic 120–196; BP diastolic 60–96; PULSE 50–92; RESP 18–20; TEMP 36.6–37.7; O2SAT 95–100; BMI 27.3
--- NOTE | 2021-11-11 05:18 | PC.NURSE ---
pt very confused at beginning of shift, confused about where he was, bit IV tubing in half, and was trying to hit nursing staff, PRN medications were given, at approximately 0400 pt woke up, knew name, and where he was, much more pleasant and wanted something to eat, has remained on room air t/o shift, no complaints of pain or SOA, has complained about the sarabia, did have good urine output this shift, approximately 1,100 mL out so far this shift
[2021-11-11 08:50] LABS: Chloride 105 mmol/L (98-107); Potassium 3.8 mmoL/L (3.5-5.1); Sodium 134 mmol/L (136-145)
[2021-11-11 08:52] LABS: Basophils % 0.5 % (0.1-2.0); Eosinophils # 0.1 K/mm3 (0.0-0.4); Eosinophils % 0.7 % (0.1-12.0); Hematocrit 36.5 % (42.0-52.0); Hemoglobin 11.4 g/dL (14.1-18.0); Lymphocytes # 1.5 K/mm3 (0.7-4.5); Lymphocytes % 17.8 % (10-50); Mean Corpuscular HGB Conc 31.2 g/dL (31.8-35.4); Mean Corpuscular Hemoglobin 32.6 pg (27.0-31.2); Mean Corpuscular Volume 104.5 fl (80-94); Mean Platelet Volume 8.4 fl (7.4-10.4); Monocytes # 0.5 K/mm3 (0.1-1.0); Neutrophils # 6.2 K/mm3 (1.8-7.8); Platelet Count 189 K/mm3 (142-424); Red Blood Count 3.49 M/mm3 (4.60-6.20); Red Cell Distribution Width 13.4 % (11.5-17.5); White Blood Count 8.3 K/mm3 (4.8-10.8)
[2021-11-11 08:53] LABS: Anion Gap 7.8 mEq/L (5-15); Blood Urea Nitrogen 19 mg/dl (9-20); Calcium 7.7 mg/dl (8.4-10.2); Carbon Dioxide 25 mmol/L (22.0-30.0); Creatinine Clearance Estimated 73 mL/min (50-200); Estimated Glomerular Filt Rate 72 ml/min (>60); GFR (African American) 87 ML/MIN (>60); Glucose 115 mg/dl (74-100)
--- NOTE | 2021-11-11 09:20 | FL_ITS ---
FINAL REPORT CLINICAL HISTORY: dysphagia FINDINGS: MODIFIED BARIUM SWALLOW History: Dysphagia FINDINGS: Fluoroscopy was provided for the speech pathologist to evaluate the swallowing mechanism. The patient was given several different consistencies of barium while the swallow was visualized fluoroscopically. The report of the speech pathologist should be consulted prior to making dietary decisions. FLUOROSCOPY TIME: not provided IMPRESSION: Modified barium swallow under fluoroscopic guidance. Please see the report of the speech pathologist for Dietary recommendations. Reviewed, Interpreted and Dictated by Milton Shepard III, MD Transcribed by SUSANA Jimenez Authenticated by Milton Shepard III, MD on 11/15/2021 09:32:31 AM [facility]
--- NOTE | 2021-11-11 09:20 | HMH.ACPN2 ---
Internal Medicine - PN: Subj *Date: 11/11/21 *Time: 09:20 Interval history: 81-year-old male patient resting quietly in bed, at bedside. Patient had a difficult night he was confused and required medication, he is alert to name only this morning. Current oxygenation is 100% on room air. Discussed with possible discharge to rehab facility, she is in agreement with this we will have PT/OT eval. also reports he has been coughing after eating and reports having a hiatal hernia in the past, we will have speech eval. Exam Vital signs and Labs for Last 24 Hours: Temp Pulse Resp BP Pulse Ox 98.5 F 64 18 196/96 H 100 11/11/21 08:00 11/11/21 08:00 11/11/21 08:00 11/11/21 08:00 11/11/21 08:00 Laboratory Results - last 24 hr 11/10/21 05:48: Alkaline Phosphatase 87 11/11/21 08:28: WBC 8.3 D, RBC 3.49 L, Hgb 11.4 L, Hct 36.5 L, MCV 104.5 H, MCH 32.6 H, MCHC 31.2 L, RDW 13.4, Plt Count 189, MPV 8.4, Neut % (Auto) 75.0, Lymph % (Auto) 17.8, [place] % (Auto) 6.0, Eos % (Auto) 0.7, Baso % (Auto) 0.5, Neut # (Auto) 6.2, Lymph # (Auto) 1.5, [place] # (Auto) 0.5, Eos # (Auto) 0.1, Baso # (Auto) 0.0 11/11/21 08:28: Sodium 134 L, Potassium 3.8, Chloride 105, Carbon Dioxide 25, Anion Gap 7.8, BUN 19, Creatinine 1.00, Estimated Creat Clear 73, Estimated GFR 72, Est GFR ( Amer) 87, Glucose 115 H, Calcium 7.7 L I & O for Last 24 hours: Intake & Output 11/08/21 11/09/21 11/10/21 11/11/21 23:59 23:59 23:59 23:59 Intake Total 1980 Output Total 175 / 775 1200 / 1200 725 / 725 Balance -175 / -775 781 / 781 -725 / -725 Weight 195 lb 4 oz 189 lb 9.561 oz 195 lb 9.6 oz Microbiology Reports for the Last 24 Hours: Microbiology 11/10/21 06:20 Urine,Clean Catch Urine Culture - Preliminary - Constitutional no acute distress - *Routine HEENT Exam Head: Present: normocephalic Eye: Present: EOMI ENT: Present: mucous membranes moist - *Routine Neck Exam Present: trachea midline. Absent: tracheal deviation - *Routine Respiratory Exam Present: CTA bilaterally. Absent: accessory muscle use - *Routine Cardiovascular Exam Present: RRR - *Routine Abdominal Exam Present: soft, normoactive bowel sounds. Absent: tenderness, firm - *Routine Extremities Exam Present: full ROM, pulses intact. Absent: cyanosis, clubbing - *Routine Skin Exam Present: intact, dry, warm. Absent: cyanosis, erythema - *Routine Neurological Exam Present: alert, altered mental status - Routine Psychiatric Exam Present: unable to assess Assessment and Plan (1) Non-STEMI (non-ST elevated myocardial infarction) Status: Acute Category: Medical Code(s): I21.4 - Non-ST elevation (NSTEMI) myocardial infarction (2) Elevated troponin Status: Acute Category: Medical Code(s): R77.8 - Other specified abnormalities of plasma proteins (3) CAD (coronary artery disease) Status: Chronic Qualifiers: Coronary Disease-Associated Artery/Lesion type: [place] artery [place] vs. transplanted heart: [place] heart Associated angina: with other forms of angina Qualified Code(s): I25.118 - Atherosclerotic heart disease of [place] coronary artery with other forms of angina pectoris Category: Medical Code(s): I25.10 - Atherosclerotic heart disease of [place] coronary artery without angina pectoris (4) HTN (hypertension) Status: Chronic Qualifiers: Hypertension type: primary hypertension Qualified Code(s): I10 - Essential (primary) hypertension Category: Medical Code(s): I10 - Essential (primary) hypertension (5) HLD (hyperlipidemia) Status: Chronic Qualifiers: Hyperlipidemia type: mixed hyperlipidemia Qualified Code(s): E78.2 - Mixed hyperlipidemia Category: Medical Code(s): E78.5 - Hyperlipidemia, unspecified (6) Multiple falls Status: Acute Category: Medical Code(s): R29.6 - Repeated falls (7) Parkinson disease Status: Acute Category: Medical Code(s):
--- NOTE | 2021-11-11 09:26 | PC.NURSE ---
verified with aly cowan that he wanted no to remain in
--- NOTE | 2021-11-11 09:35 | HMH.SLDYSPHA ---
Speech & Language Evaluation Speech/Language Dysphagia Evaluation Start: 11/11/21 09:31 Freq: ONCE Status: Active Protocol: Document 11/11/21 09:31 [email or web address] (Rec: 11/11/21 09:35 [email or web address] [id number]) Dysphagia Assess/Goals/Plan Assessment Date of Evaluation: 11/11/21 Evaluation Type Initial Certification Assessment/Problems Dysphagia Does Patient Qualify for Service No Qualify/Failure Comment Patient referred for a MBS to rule out aspiration. Goals will be based on those results . Plan Pt/Guardian verbally ack understanding Yes: , RN, and of dx/prognosis/goals notified G -code Required No Speech & Language HPI Language Primary Language Q[place] General Information General Current Food Consistancy Regular,Thin Liquids Dentition Good Dentition Oxygen Status Room Air Facial Symmetry Symmetrical Patient Orientation Person,Place,Time Ability to Follow Directions Good Communication Ability No Impairment Dysphagia:Food Presentation Evaluation Food Type Pureed,Mechanical Soft,Regular ,Liquid,Pudding Normal/Thin Liquid Response Coughing after swallow,Clears throat Dysphagia Evaluation Summary Mr. Bronson was given the following consistencies: thins via straw and open cup, pudding, pureed, mechanical soft, and regular. Mr. Bronson did exhibit coughing after the swallow and throat clearing with thin liquids from straw and open cup. At this time, it is recommended he have a Modified Barium Swallow Study to rule out aspiration. Therapy goals will be determined based on those results. Stroke Dysphagia Assessment PHYSICIAN CERTIFICATION: I certify the specified therapy services for James Bronson are required, authorized, and reviewed every 30 days.
--- NOTE | 2021-11-11 10:30 | HMH.OTEV ---
OT Inpatient Evaluation Rehab OT IP Evaluation Start: 11/11/21 08:55 Freq: ONCE Status: Complete Protocol: Document 11/11/21 10:14 [facility] (Rec: 11/11/21 10:30 [facility] [id number]) Rehab OT IP Assessment Subjective History Pt oriented x 2 on arrival. Pt agreeable to engage in therapy evaluation. However, pt very lethargic and difficult to stay awake. Pt's present and provides information of patient's prior level of functioning. Pt was admitted via ED on 11/09/21 due to weakness. The following information was copied from PCP's history and physical report: 81-year-old gentleman who presented to the emergency department after a falling episode. The patient was brought in via ambulance. He does have Parkinson's disease. Per ed record states that for the last 4 days he has been having difficulty ambulating and really weak and could not stand on his own. This was a change for him. Today he was walking to the bathroom and using a small table for support when it broke and he fell. His reported that he has fallen four times in the last month. Upon arrival to the emergency department the patient is found to have an elevated troponin at 0.11. Pt denies any chest pressure or pain. Pt keeps stating he has a hole around his bag that if he hold the head of his penis closed he can urinate out of hole and this has been going on for about a month. Pt states he thinks this is what is causing all his problems. Pt has a past medical history of: Coronary Artery Disease,
--- NOTE | 2021-11-11 10:50 | HMH.PTEV ---
Physical Therapy Evaluation Rehab PT IP Evaluation Start: 11/11/21 08:54 Freq: ONCE Status: Active Protocol: Document 11/11/21 10:46 [facility] (Rec: 11/11/21 10:50 [facility] [id number]) Subjective/History History History 81 yowm adm to [facility] with falls at home and suffering an NSTEMI. He has Parkinson's disease at baseline, but was independently ambulatory prior to adm. He lives with his spouse with 1 step to enter the home. Subjective Subjective Pt reports feeling good, only tired this am. Rehab PT IP Eval Objective Appearance Patient Behavior Appropriate Patient Orientation Person,Place,Time Difficulty following instructions none Speech Pattern Clear,Delayed Ambulation Patient Able to Ambulate Yes Ambulation Observation IP General Gait Pattern Observation Shuffling Step,Decrease Stride Lngth (R),Decrease Stride Lngth (L) Ambulation Distance (feet) 5 Ambulation Assistive Device None Ambulation Ability Minimal x 1 (25% assist) Balance Ability to Arise Able, uses arms to help Sitting Balance Leans or slides in chair Standing Balance Unsteady Dynamic Sitting Balance Ability Poor Dynamic Standing Balance Ability Poor Transfers Bed Transfer Ability Maximum x 1 (75% assist) Chair Transfer Ability Moderate x 1 (50% assist) Sit to Stand Bed Transfer Ability Moderate x 1 (50% assist) Sit to Stand Chair Transfer Ability Moderate x 1 (50% assist) Rehab PT IP prob,goals,plan Problems Date of Evaluation: 11/11/21 PT IP Problems Bed Mobility,Transfers,Gait, Balance,Self care Rehab Potential Rehab Potential Good Plan PT Intervention Plan Bed Mobility,Transfers,Gait, Balance,Self care,Therapeutic Exercise PT Plan Frequency BID Duration LOS Discharge Goals Bed Transfer Ability Moderate x 1 (50% assist) Sit to Stand Chair Transfer Ability Minimal x 1 (25% assist) Ambulation Distance (feet) 20 Discharge Plan PT Discharge Plan Pt is most appropriate for rehab placement at this time. If he returns home he will be at severe risk for further injury, wounds, and debility. G -code Required No Eval Complexity Ev
--- NOTE | 2021-11-11 10:52 | SW/DCPLANNER ---
Addendum entered by [facility] 11/16/21 13:35: This patient will discharge to [facility] today under SNF level of care. COVID swab is negative. Addendum entered by [facility] 11/16/21 11:00: [facility] can not tell me when they will have a bed available at this time. [facility]ne [facility] has stated that she can accept this patient today. I have informed Dr Carter and Audie: COVID swab has been ordered. Patient should discharge to [facility] today. Addendum entered by [facility] 11/16/21 10:11: I have left a voicemail with [facility] and [facility] this AM regarding referral. Patient is medically stable for discharge at this time. Addendum entered by [facility] 11/15/21 10:12: Patient information has also been faxed to [facility]. Addendum entered by [facility] 11/15/21 09:56: I spoke with Sybil this AM regarding this patient being medically stable for discharge. Sybil has stated that at this time she is only waiting on an available bed prior to being able to accept this patient. I will continue to stay in contact with MD Sybil and patient/family. Addendum entered by [facility] 11/12/21 13:01: Sybil with [facility] in [place] has stated that this patient is appropriate for their facility and will begin precert. Sybil stated that she does not expect to hear anything back till early next week. I will update MD and family. Addendum entered by [facility] 11/12/21 09:51: Patient information has also been faxed to [facility] in [place]. I will continue to follow up with patient, family, facilities and MD. Addendum entered by [facility] 11/11/21 14:51: Information has also been faxed to [facility]. Addendum entered by [facility] 11/11/21 13:45: [facility] is still reviewing patient information. Original Note: I spoke with patient and his this AM regarding discharge plans once medically stable. stated that she did feel that patient would need rehab before returning home due to weakness. PT/OT evaluation has been ordered this AM and they are suggested SNF level of care once medically stable for discharge. I spoke with regarding different facilities: at this time is only agreeable to [facility] or [facility]. I spoke with [facility]adne from [facility] that has requested that referral be faxed over. I will fax patient information to [facility] this AM: discharge date is unknown at this time.
--- NOTE | 2021-11-11 11:10 | HMH.PNCARD ---
Subjective Date: 11/11/21 Time: 11:00 Principal diagnosis: non-stemi Interval history: This is an 81-year-old gentleman who presented to the emergency department after falling episode. He was found to have a non-ST elevation myocardial infarction and underwent left cardiac catheterization with a total of stents stents placed to multiple vessels. This morning he denies any chest pain or pressure. He denies any shortness of breath or edema. He denies any fever, chills, nausea, vomiting, diarrhea, PND or orthopnea. Exam Vital signs and Labs for Last 24 Hours: Temp Pulse Resp BP Pulse Ox 98.5 F 64 18 196/96 H 95 11/11/21 08:00 11/11/21 08:00 11/11/21 08:00 11/11/21 08:00 11/11/21 08:00 Laboratory Results - last 24 hr 11/11/21 08:28: WBC 8.3 D, RBC 3.49 L, Hgb 11.4 L, Hct 36.5 L, MCV 104.5 H, MCH 32.6 H, MCHC 31.2 L, RDW 13.4, Plt Count 189, MPV 8.4, Neut % (Auto) 75.0, Lymph % (Auto) 17.8, [place] % (Auto) 6.0, Eos % (Auto) 0.7, Baso % (Auto) 0.5, Neut # (Auto) 6.2, Lymph # (Auto) 1.5, [place] # (Auto) 0.5, Eos # (Auto) 0.1, Baso # (Auto) 0.0 11/11/21 08:28: Sodium 134 L, Potassium 3.8, Chloride 105, Carbon Dioxide 25, Anion Gap 7.8, BUN 19, Creatinine 1.00, Estimated Creat Clear 73, Estimated GFR 72, Est GFR ( Amer) 87, Glucose 115 H, Calcium 7.7 L I & O for Last 24 hours: Intake & Output 11/08/21 11/09/21 11/10/21 11/11/21 23:59 23:59 23:59 23:59 Intake Total 1980 Output Total 175 / 775 1200 / 1200 725 / 725 Balance -175 / -775 781 / 781 -725 / -725 Weight 195 lb 4 oz 189 lb 9.561 oz 195 lb 9.6 oz Microbiology Reports for the Last 24 Hours: Microbiology 11/09/21 09:35 Blood Blood Culture - Preliminary NO GROWTH AFTER 48 HOURS 11/09/21 09:35 Blood Blood Culture - Preliminary NO GROWTH AFTER 48 HOURS 11/10/21 06:20 Urine,Clean Catch Urine Culture - Preliminary Narrative: CNI shows: Less than 50% bilateral carotid stenosis. Bilateral patent vertebral arteries with antegrade flow. - Constitutional no acute distress, average body habitus - *Routine HEENT Exam Head: Present: normocephalic, atraumatic Eye: Present: EOMI, PERRL ENT: Present: mucous membranes moist - *Routine Neck Exam Present: supple, full ROM, carotid bruit, normal carotid upstroke. Absent: JVD, lymphadenopathy - *Routine Respiratory Exam Present: CTA bilaterally - *Routine Cardiovascular Exam Present: RRR, Normal S1, Normal S2. Absent: murmur - *Routine Abdominal Exam Present: soft, normoactive bowel sounds. Absent: tenderness, distended - *Routine Extremities Exam Present: full ROM, pulses intact, normal capillary refill. Absent: cyanosis, clubbing, edema - *Routine Skin Exam Present: intact, warm. Absent: erythema, rash - *Routine Neurological Exam Present: alert, oriented X3, CN II-XII intact. Absent: sensory deficit, motor deficit Progress Note: A&P (1) Non-STEMI (non-ST elevated myocardial infarction) Status: Acute (2) Elevated troponin Status: Acute (3) CAD (coronary artery disease) Status: Chronic (4) HTN (hypertension) Status: Chronic (5) HLD (hyperlipidemia) Status: Chronic (6) Multiple falls Status: Acute (7) Parkinson disease Status: Acute (8) Urine stream spraying Status: Acute (9) Bilateral carotid bruits Status: Acute Assessment and Plan for All Diagnoses:: Plan: 1. This is an 81-year-old gentleman who was admitted to the hospital after a fall and found to have a non-ST elevation myocardial infarction. He underwent multivessel stenting with 6 stents. He will remain on Plavix and aspirin for dual antiplatelet therapy. His coronary artery disease is likely stable. 2. The patient's blood pressure was elevated this morning with a systolic blood pressure of 190. His lisinopril has been increased to 10 mg p.o. twice daily and his blood pressure is now 111 systolic.
--- NOTE | 2021-11-11 13:48 | HMH.SLMBS2 ---
Speech & Language Evaluation Speech/Language Mod Barium Swallow Start: 11/11/21 09:20 Freq: ONCE Status: Complete Protocol: Document 11/11/21 13:27 [facility] (Rec: 11/11/21 13:48 [facility] [id number]) General Information General Current Food Consistancy Regular,Thin Liquids Dentition Upper & Lower Dentures Oxygen Status Room Air Facial Symmetry Symmetrical Patient Orientation Person,Place,Time Ability to Follow Directions Good Communication Ability No Impairment MBS Recommendations Diet Dietary Recommendations Regular,Thin Liquids Comment with chin tuck Treatment/Strategies Strategy/Precaution Recommend Sitting Upright (90 deg),Chin Tuck,Small Bites and Sips Mod Barium Swallow Impressions Summary and Impressions Oral Phase Impression Minimal Impairment Oral Phase Summary Mr. Bronson was given the following consistencies: thins via open cup and straw, pudding, pureed, mechanical soft, regular, and pill from an open cup. Premature spillage was observed with thin liquids. Pharyngeal Phase Impression Moderate Impairment Pharyngeal Phase Summary Silent aspiration was observed with thin liquids and pill with thin wash. Penetration to folds without aspiration occured with pudding. Speech/Language MBS Assessment/Goals/Plan Assessment Date of Evaluation: 11/11/21 Evaluation Type Initial Certification Assessment/Problems Dysphagia Does Patient Qualify for Service Yes Qualify/Failure Comment Mr. Bronson displayed signs of dysphagia characterized by silent aspiration with thin liquids without a chin tuck. Recommendations PHYSICIAN CERTIFICATION: The specified therapy services are required, authorized, and reviewed every 30 days. Pt will be seen # times/week 1 for # weeks 1 Diet Recommendations Normal Liquid Type Recommendations Normal/Thin SL Swallow Guidelines Standard Aspiration Prec. Dysphagia Swallow Precautions/Strategies Sitting Upright (90 deg),Chin Tuck,Small Bites and Sips, Alternate Liquids/Solids Plan Pt/Guardian verbally ack understanding Yes of dx/prognosis/goals G -code Required No STG-Asp Before/Delayed Resp Use chin-down position w/wo cues #trials 5 STG-Asp During/Laryngeal Closure Us
--- NOTE | 2021-11-11 15:39 | PC.NURSE ---
MODIFIED BARIUM SWALLOW PERFORMED THIS SHIFT. PT INSTRUCTED BY THIS RN AND SPEECH THERAPIST TO USE CHIN TUCK METHOD WHEN EATING AND DRINKING.
[2021-11-12] VITALS (11 sets, daily range): BP systolic 142–164; BP diastolic 69–91; PULSE 50–80; RESP 16–18; TEMP 36.8–37.3; O2SAT 92–96; BMI 27.5
[2021-11-12 06:58] LABS: Basophils % 0.4 % (0.1-2.0); Eosinophils # 0.3 K/mm3 (0.0-0.4); Eosinophils % 4.2 % (0.1-12.0); Hematocrit 34.9 % (42.0-52.0); Hemoglobin 10.9 g/dL (14.1-18.0); Lymphocytes # 1.6 K/mm3 (0.7-4.5); Lymphocytes % 22.3 % (10-50); Mean Corpuscular HGB Conc 31.4 g/dL (31.8-35.4); Mean Corpuscular Hemoglobin 32.6 pg (27.0-31.2); Mean Corpuscular Volume 103.9 fl (80-94); Mean Platelet Volume 9.2 fl (7.4-10.4); Monocytes # 0.6 K/mm3 (0.1-1.0); Monocytes % 7.6 % (1.7-9.3); Neutrophils # 4.8 K/mm3 (1.8-7.8); Neutrophils % 65.4 % (37.0-80.0); Platelet Count 190 K/mm3 (142-424); Red Blood Count 3.36 M/mm3 (4.60-6.20); Red Cell Distribution Width 13.4 % (11.5-17.5); White Blood Count 7.3 K/mm3 (4.8-10.8)
[2021-11-12 07:03] LABS: Blood Urea Nitrogen 18 mg/dl (9-20); Calcium 7.9 mg/dl (8.4-10.2); Carbon Dioxide 25 mmol/L (22.0-30.0); Chloride 108 mmol/L (98-107); Creatinine Clearance Estimated 73 mL/min (50-200); Estimated Glomerular Filt Rate 81 ml/min (>60); GFR (African American) 98 ML/MIN (>60); Glucose 102 mg/dl (74-100); Sodium 138 mmol/L (136-145)
--- NOTE | 2021-11-12 09:22 | CT_ITS ---
FINAL REPORT TECHNIQUE: Axial images were obtained from the lung apex to the mid abdomen by computed tomography. Coronal reformatted images were obtained. This study was performed with techniques to keep radiation doses as low as reasonably achievable, (ALARA). Individualized dose reduction techniques using automated exposure control or adjustment of mA and/or kV according to the patient's size were employed. CLINICAL HISTORY: fever FINDINGS: There are postoperative changes at the anterior base of the neck which is likely from thyroidectomy. There is no axillary adenopathy. There is no hilar or mediastinal adenopathy. Heart size is normal. There are diffuse coronary artery calcifications. There is no pericardial or pleural effusion. Limited images of the upper abdomen are unremarkable. The gallbladder is present. There is motion on the lung window images. There is mild bibasilar atelectasis and small pleural effusions. Several calcified granulomas are seen bilaterally. IMPRESSION: Mild bibasilar atelectasis and small pleural effusions. Reviewed, Interpreted and Dictated by Milton Shepard III, MD Transcribed by Dinorah Gracia Authenticated by Milton Shepard III, MD on 11/12/2021 12:18:46 PM [facility]
--- NOTE | 2021-11-12 09:23 | HMH.ACPN2 ---
Internal Medicine - PN: Subj *Date: 11/12/21 *Time: 08:10 Interval history: pt sitting up in bed states he needs to urinate. sarabia in place draining clear yellow urine Exam Vital signs and Labs for Last 24 Hours: Temp Pulse Resp BP Pulse Ox 99.2 F 74 18 164/86 H 93 L 11/12/21 07:20 11/12/21 07:20 11/12/21 07:20 11/12/21 07:20 11/12/21 07:20 Laboratory Results - last 24 hr 11/12/21 05:47: WBC 7.3, RBC 3.36 L, Hgb 10.9 L, Hct 34.9 L, MCV 103.9 H, MCH 32.6 H, MCHC 31.4 L, RDW 13.4, Plt Count 190, MPV 9.2, Neut % (Auto) 65.4, Lymph % (Auto) 22.3, [place] % (Auto) 7.6, Eos % (Auto) 4.2, Baso % (Auto) 0.4, Neut # (Auto) 4.8, Lymph # (Auto) 1.6, [place] # (Auto) 0.6, Eos # (Auto) 0.3, Baso # (Auto) 0.0 11/12/21 05:47: Sodium 138, Potassium 4.0, Chloride 108 H, Carbon Dioxide 25, Anion Gap 9.0, BUN 18, Creatinine 0.90, Estimated Creat Clear 73, Estimated GFR 81, Est GFR ( Amer) 98, Glucose 102 H, Calcium 7.9 L I & O for Last 24 hours: Intake & Output 11/09/21 11/10/21 11/11/21 11/12/21 11:59 11:59 11:59 11:59 Intake Total 1501 / 1501 840 / 840 940 / 940 Output Total 775 / 775 1325 / 1325 2600 / 2600 Balance 726 / 726 -485 / -485 -1660 / -1660 Weight 195 lb 191 lb 195 lb 9.6 oz 196 lb 6.4 oz Microbiology Reports for the Last 24 Hours: Microbiology 11/09/21 09:35 Blood Blood Culture - Preliminary 11/09/21 09:35 Blood Blood Culture - Preliminary NO GROWTH AFTER 48 HOURS 03/02/22 06:20 Urine,Clean Catch Urine Culture - Preliminary - Constitutional no acute distress, chronically ill appearing - *Routine HEENT Exam Head: Present: normocephalic Eye: Present: PERRL ENT: Present: mucous membranes moist - *Routine Neck Exam Present: supple. Absent: lymphadenopathy - *Routine Respiratory Exam Present: CTA bilaterally - *Routine Cardiovascular Exam Present: RRR - *Routine Abdominal Exam Present: soft, normoactive bowel sounds. Absent: tenderness - *Routine Extremities Exam Absent: cyanosis, clubbing, edema - *Routine Skin Exam Present: warm. Absent: rash - *Routine Neurological Exam Present: alert, oriented X3 Assessment and Plan (1) Non-STEMI (non-ST elevated myocardial infarction) Status: Acute Category: Medical Code(s): I21.4 - Non-ST elevation (NSTEMI) myocardial infarction (2) Elevated troponin Status: Acute Category: Medical Code(s): R77.8 - Other specified abnormalities of plasma proteins (3) CAD (coronary artery disease) Status: Chronic Qualifiers: Coronary Disease-Associated Artery/Lesion type: [place] artery [place] vs. transplanted heart: [place] heart Associated angina: with other forms of angina Qualified Code(s): I25.118 - Atherosclerotic heart disease of [place] coronary artery with other forms of angina pectoris Category: Medical Code(s): I25.10 - Atherosclerotic heart disease of [place] coronary artery without angina pectoris (4) HTN (hypertension) Status: Chronic Qualifiers: Hypertension type: primary hypertension Qualified Code(s): I10 - Essential (primary) hypertension Category: Medical Code(s): I10 - Essential (primary) hypertension (5) HLD (hyperlipidemia) Status: Chronic Qualifiers: Hyperlipidemia type: mixed hyperlipidemia Qualified Code(s): E78.2 - Mixed hyperlipidemia Category: Medical Code(s): E78.5 - Hyperlipidemia, unspecified (6) Multiple falls Status: Acute Category: Medical Code(s): R29.6 - Repeated falls (7) Parkinson disease Status: Acute Category: Medical Code(s): G20 - Parkinson's disease (8) Urine stream spraying Status: Acute Category: Medical Code(s): R39.198 - Other difficulties with micturition (9) Bilateral carotid bruits Status: Acute Category: Medical Code(s): R09.89 - Other specified symptoms and signs involving the circulatory and respiratory systems - Assessment and plan all Dx Assessment an
--- NOTE | 2021-11-12 12:14 | DIET.NUTRFU ---
M[employer]ED [employer]ER is working with patient, her notes indicate silent aspiration was observed with thin liquids and pill with thin wash. Penetration to folds without aspiration occurred with pudding. Chin tuck needs to be initiated with all foods/liquids. [employer] note indicate he is well educated and easy to remind/cooperate during meals. Looking intake placement for discharge when ready possibly [facility]. Meal intake ti fair to good consuming >50% at most meals.
[2021-11-13] VITALS (8 sets, daily range): BP systolic 129–188; BP diastolic 64–95; PULSE 54–86; RESP 16–18; TEMP 36.7–37.3; O2SAT 94–96; BMI 27.1
--- NOTE | 2021-11-13 03:07 | PC.NURSE ---
No acute changes this shift. Pt has slept at intervals. No complaints stated. Pt has stated that he wants to go home. Pt was confused about the time and stated he was ready to go home. Pt was redirected on time. Pt is currently sitting up in bed eating pudding and drinking coffee. VSS. Will continue to monitor.
[2021-11-13 07:22] LABS: Basophils # 0.1 K/mm3 (0-0.2); Eosinophils # 0.2 K/mm3 (0.0-0.4); Eosinophils % 2.9 % (0.1-12.0); Hematocrit 36.2 % (42.0-52.0); Hemoglobin 11.7 g/dL (14.1-18.0); Lymphocytes # 1.1 K/mm3 (0.7-4.5); Mean Corpuscular HGB Conc 32.3 g/dL (31.8-35.4); Mean Corpuscular Hemoglobin 33.1 pg (27.0-31.2); Mean Corpuscular Volume 102.6 fl (80-94); Mean Platelet Volume 8.3 fl (7.4-10.4); Monocytes # 0.4 K/mm3 (0.1-1.0); Neutrophils # 4.6 K/mm3 (1.8-7.8); Neutrophils % 72.2 % (37.0-80.0); Platelet Count 225 K/mm3 (142-424); Red Blood Count 3.53 M/mm3 (4.60-6.20); Red Cell Distribution Width 13.3 % (11.5-17.5); White Blood Count 6.3 K/mm3 (4.8-10.8)
[2021-11-13 07:25] LABS: Anion Gap 8.8 mEq/L (5-15); Blood Urea Nitrogen 14 mg/dl (9-20); Calcium 8.1 mg/dl (8.4-10.2); Carbon Dioxide 25 mmol/L (22.0-30.0); Chloride 106 mmol/L (98-107); Creatinine Clearance Estimated 72 mL/min (50-200); Estimated Glomerular Filt Rate 93 ml/min (>60); GFR (African American) 112 ML/MIN (>60); Glucose 100 mg/dl (74-100); Potassium 3.8 mmoL/L (3.5-5.1); Sodium 136 mmol/L (136-145)
--- NOTE | 2021-11-13 09:07 | HMH.ACPN ---
Internal Medicine - PN: Subj *Date: 11/13/21 *Time: 09:07 Exam Vital signs and Labs for Last 24 Hours: Temp Pulse Resp BP Pulse Ox 98.1 F 86 16 188/95 H 96 11/13/21 07:37 11/13/21 07:37 11/13/21 07:37 11/13/21 07:37 11/13/21 07:37 Laboratory Results - last 24 hr 11/13/21 06:22: WBC 6.3, RBC 3.53 L, Hgb 11.7 L, Hct 36.2 L, MCV 102.6 H, MCH 33.1 H, MCHC 32.3, RDW 13.3, Plt Count 225, MPV 8.3, Neut % (Auto) 72.2, Lymph % (Auto) 18.0, [place] % (Auto) 6.0, Eos % (Auto) 2.9, Baso % (Auto) 1.0, Neut # (Auto) 4.6, Lymph # (Auto) 1.1, [place] # (Auto) 0.4, Eos # (Auto) 0.2, Baso # (Auto) 0.1 11/13/21 06:22: Sodium 136, Potassium 3.8, Chloride 106, Carbon Dioxide 25, Anion Gap 8.8, BUN 14, Creatinine 0.80, Estimated Creat Clear 72, Estimated GFR 93, Est GFR ( Amer) 112, Glucose 100, Calcium 8.1 L I & O for Last 24 hours: Intake & Output 11/10/21 11/11/21 11/12/21 11/13/21 23:59 23:59 23:59 23:59 Intake Total 1980 / 1980 840 / 940 1060 / 1060 240 / 240 Output Total 1200 / 1200 1925 / 1925 4875 / 4875 1025 / 1025 Balance 781 / 781 -1085 / -985 -3815 / -3815 -785 / -785 Weight 86 kg 88.723 kg 89.086 kg 88.042 kg Microbiology Reports for the Last 24 Hours: Microbiology 11/09/21 09:35 Blood Blood Culture - Preliminary Gram Positive Cocci 11/10/21 06:20 Urine,Clean Catch Urine Culture - Final Multiple organisms, suggests contamination. Assessment and Plan (1) Non-STEMI (non-ST elevated myocardial infarction) Status: Acute Category: Medical Code(s): I21.4 - Non-ST elevation (NSTEMI) myocardial infarction (2) Elevated troponin Status: Acute Category: Medical Code(s): R77.8 - Other specified abnormalities of plasma proteins (3) CAD (coronary artery disease) Status: Chronic Qualifiers: Coronary Disease-Associated Artery/Lesion type: [place] artery [place] vs. transplanted heart: [place] heart Associated angina: with other forms of angina Qualified Code(s): I25.118 - Atherosclerotic heart disease of [place] coronary artery with other forms of angina pectoris Category: Medical Code(s): I25.10 - Atherosclerotic heart disease of [place] coronary artery without angina pectoris (4) HTN (hypertension) Status: Chronic Qualifiers: Hypertension type: primary hypertension Qualified Code(s): I10 - Essential (primary) hypertension Category: Medical Code(s): I10 - Essential (primary) hypertension (5) HLD (hyperlipidemia) Status: Chronic Qualifiers: Hyperlipidemia type: mixed hyperlipidemia Qualified Code(s): E78.2 - Mixed hyperlipidemia Category: Medical Code(s): E78.5 - Hyperlipidemia, unspecified (6) Multiple falls Status: Acute Category: Medical Code(s): R29.6 - Repeated falls (7) Parkinson disease Status: Acute Category: Medical Code(s): G20 - Parkinson's disease (8) Urine stream spraying Status: Acute Category: Medical Code(s): R39.198 - Other difficulties with micturition (9) Bilateral carotid bruits Status: Acute Category: Medical Code(s): R09.89 - Other specified symptoms and signs involving the circulatory and respiratory systems The patient's infection will respond to the chosen ABx?: Yes Is the patient receiving the right drug, dose, and route?: Yes Could a more targeted ABx be ordered?: No
--- NOTE | 2021-11-13 09:35 | HMH.ACPN2 ---
Internal Medicine - PN: Subj *Date: 11/14/21 *Time: 08:06 Interval history: resting at this time - more active Exam Vital signs and Labs for Last 24 Hours: Temp Pulse Resp BP Pulse Ox 98.1 F 86 16 188/95 H 96 11/13/21 07:37 11/13/21 07:37 11/13/21 07:37 11/13/21 07:37 11/13/21 07:37 Laboratory Results - last 24 hr 11/13/21 06:22: WBC 6.3, RBC 3.53 L, Hgb 11.7 L, Hct 36.2 L, MCV 102.6 H, MCH 33.1 H, MCHC 32.3, RDW 13.3, Plt Count 225, MPV 8.3, Neut % (Auto) 72.2, Lymph % (Auto) 18.0, [place] % (Auto) 6.0, Eos % (Auto) 2.9, Baso % (Auto) 1.0, Neut # (Auto) 4.6, Lymph # (Auto) 1.1, [place] # (Auto) 0.4, Eos # (Auto) 0.2, Baso # (Auto) 0.1 11/13/21 06:22: Sodium 136, Potassium 3.8, Chloride 106, Carbon Dioxide 25, Anion Gap 8.8, BUN 14, Creatinine 0.80, Estimated Creat Clear 72, Estimated GFR 93, Est GFR ( Amer) 112, Glucose 100, Calcium 8.1 L I & O for Last 24 hours: Intake & Output 11/10/21 11/11/21 11/12/21 11/13/21 11:59 11:59 11:59 11:59 Intake Total 1501 / 1501 840 / 840 940 / 940 840 / 840 Output Total 775 / 775 1325 / 1325 2600 / 2600 4500 / 4500 Balance 726 / 726 -485 / -485 -1660 / -1660 -3660 / -3660 Weight 191 lb 195 lb 9.6 oz 196 lb 6.4 oz 194 lb 1.6 oz Microbiology Reports for the Last 24 Hours: Microbiology 11/09/21 09:35 Blood Blood Culture - Preliminary Gram Positive Cocci 11/10/21 06:20 Urine,Clean Catch Urine Culture - Final Multiple organisms, suggests contamination. - Constitutional no acute distress - *Routine HEENT Exam Head: Present: normocephalic Eye: Present: EOMI, PERRL ENT: Present: mucous membranes dry - *Routine Neck Exam Absent: JVD - *Routine Respiratory Exam Present: decreased breath sounds - *Routine Cardiovascular Exam Present: RRR - *Routine Abdominal Exam Present: soft - *Routine Extremities Exam Absent: calf tenderness - *Routine Skin Exam Present: intact - *Routine Neurological Exam Present: alert, CN II-XII intact - Routine Psychiatric Exam Present: cooperative Assessment and Plan (1) Non-STEMI (non-ST elevated myocardial infarction) Status: Acute Category: Medical Code(s): I21.4 - Non-ST elevation (NSTEMI) myocardial infarction (2) Elevated troponin Status: Acute Category: Medical Code(s): R77.8 - Other specified abnormalities of plasma proteins (3) CAD (coronary artery disease) Status: Chronic Qualifiers: Coronary Disease-Associated Artery/Lesion type: [place] artery [place] vs. transplanted heart: [place] heart Associated angina: with other forms of angina Qualified Code(s): I25.118 - Atherosclerotic heart disease of [place] coronary artery with other forms of angina pectoris Category: Medical Code(s): I25.10 - Atherosclerotic heart disease of [place] coronary artery without angina pectoris (4) HTN (hypertension) Status: Chronic Qualifiers: Hypertension type: primary hypertension Qualified Code(s): I10 - Essential (primary) hypertension Category: Medical Code(s): I10 - Essential (primary) hypertension (5) HLD (hyperlipidemia) Status: Chronic Qualifiers: Hyperlipidemia type: mixed hyperlipidemia Qualified Code(s): E78.2 - Mixed hyperlipidemia Category: Medical Code(s): E78.5 - Hyperlipidemia, unspecified (6) Multiple falls Status: Acute Category: Medical Code(s): R29.6 - Repeated falls (7) Parkinson disease Status: Acute Category: Medical Code(s): G20 - Parkinson's disease (8) Urine stream spraying Status: Acute Category: Medical Code(s): R39.198 - Other difficulties with micturition (9) Bilateral carotid bruits Status: Acute Category: Medical Code(s): R09.89 - Other specified symptoms and signs involving the circulatory and respiratory systems
--- NOTE | 2021-11-13 11:52 | PC.NURSE ---
warehouse order puller (lorri gonsales) spoke with and told him patient was in room ready to be seen
--- NOTE | 2021-11-13 12:20 | HMH.CONS ---
*Admission Date: 11/09/21 *Reason for consult:: Patient with complaints of urinary spraying *History of present illness: Patient is an 81-year-old white male who presented to the emergency room today after suffering a fall at home. He has a history of Parkinson's disease. Patient has been worked up extensively today with a CT of the spine and head as well as lab work, chest x-ray. Patient gives additional history spraying urine everywhere when he goes to the restroom. He also told the ER physician that he had a small hole at the base of his scrotum but physical examination by the ER doctor did not show any abnormalities. Patient states that the small hole that he had previously complained about has resolved. Currently has a Jarvis catheter in place. When asked about the urinary spraying he says that has resolved as well. CT of abdomen and pelvis shows some right renal cyst 1 of which is notable for a complex renal cyst that is about 19 mm in size. The prostate does not appear to be significantly enlarged and the bladder appears normal. [facility] History Medical History: Reports:: Coronary Artery Disease, Hyperlipidemia, Hypertension Denies:: Diabetes Mellitus Type 1, Diabetes Mellitus Type 2 *Have you ever received a pneumonia vaccine?: Yes *Have you received a flu vaccine this season?: Yes Other Medical History: Reports: Hypothyroidism, Thyroid Disease, Other (Parkinson's Disease) Other Surgeries: Yes: No Previous Surgery, Cardiac Catheterization - *Social History Last grade of school completed: Some college Smoking Status: Never smoker Alcohol Intake: never *Occupational Status:: retired Housing: house Household Members: spouse *Travel in the last 8 weeks: None Family Hx:: No significant family history Review of Systems - Review of Systems Review of systems:: pertinent systems reviewed and negative unless documented below - *Neurologic Reports unsteadiness, Reports frequent falls, Reports weakness, Denies abnormal walking Meds Home Medications Medication Instructions Recorded Confirmed Type Bisoprolol Fumarate [Bisoprolol 5 mg PO DAILY 11/09/21 11/09/21 History 5mg Tablet] Carbidopa/Levodopa 2 tab PO QID 11/09/21 11/09/21 History [Carbidopa/Levodopa 25/100mg Tablet] Clopidogrel Bisulfate [Clopidogrel 75 mg PO DAILY 11/09/21 11/09/21 History 75mg Tab] Gabapentin 300 mg PO TID 11/09/21 11/09/21 History Levothyroxine Sodium [Euthyrox] 150 mcg PO DAILY 11/09/21 11/09/21 History Loratadine 10 mg PO DAILY 11/09/21 11/09/21 History Pramipexole Di-HCl [Mirapex 0.25 mg PO TID 11/09/21 11/09/21 History 0.125mg tablet] Sildenafil Citrate 50 mg PO DAILY PRN 11/09/21 11/09/21 History Tizanidine HCl [Zanaflex 4mg 4 mg PO BIDP PRN 11/09/21 11/09/21 History tablet] Allergies Allergy/AdvReac Type Severity Reaction Status Date / Time No Known Allergies Allergy Verified 11/09/21 16:48 Exam Vital signs and Labs for Last 24 Hours: Temp Pulse Resp BP Pulse Ox 98.3 F 54 L 16 129/64 94 L 11/13/21 11:40 11/13/21 11:40 11/13/21 11:40 11/13/21 11:40 11/13/21 11:40 Laboratory Results - last 24 hr 11/13/21 06:22: WBC 6.3, RBC 3.53 L, Hgb 11.7 L, Hct 36.2 L, MCV 102.6 H, MCH 33.1 H, MCHC 32.3, RDW 13.3, Plt Count 225, MPV 8.3, Neut % (Auto) 72.2, Lymph % (Auto) 18.0, [place] % (Auto) 6.0, Eos % (Auto) 2.9, Baso % (Auto) 1.0, Neut # (Auto) 4.6, Lymph # (Auto) 1.1, [place] # (Auto) 0.4, Eos # (Auto) 0.2, Baso # (Auto) 0.1 11/13/21 06:22: Sodium 136, Potassium 3.8, Chloride 106, Carbon Dioxide 25, Anion Gap 8.8, BUN 14, Creatinine 0.80, Estimated Creat Clear 72, Estimated GFR 93, Est GFR ( Amer) 112, Glucose 100, Calcium 8.1 L I & O for Last 24 hours: Intake & Output 11/10/21 11/11/21 11/12/21 11/13/21 23:59 23:59 23:59 23:59 Intake Total 1980 840 / 940 1060 / 1060 240 / 240 Output Total 1200 / 1200 1925 / 1925 4875 / 4875 1025 / 1025 Balance 781 / 781 -1085 / -985 -3815 / -3815 -78
[2021-11-14] VITALS (9 sets, daily range): BP systolic 106–196; BP diastolic 56–88; PULSE 50–83; RESP 16–24; TEMP 36.6–38.3; O2SAT 94–95; BMI 25.9
--- NOTE | 2021-11-14 04:32 | PC.NURSE ---
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 THIS RN HAS REMINDED PATIENT ON SEVERAL OCCASIONS THAT HE IS IN THE HOSPITAL AND IT IS HIS BEST INTEREST TO STAY IN BED, DON'T REMOVE TUBES AND REST. WITH EACH CONVERSATION, PATIENT VERBALIZES AN UNDERSTANDING. THIS RN ADMINISTERED ATIVAN APPROPRIATELY. NO OTHER CONCERNS OR COMMENTS AT THIS TIME.
[2021-11-14 06:54] LABS: Anion Gap 12.8 mEq/L (5-15); Blood Urea Nitrogen 15 mg/dl (9-20); Calcium 8.6 mg/dl (8.4-10.2); Carbon Dioxide 26 mmol/L (22.0-30.0); Chloride 102 mmol/L (98-107); Creatinine Clearance Estimated 69 mL/min (50-200); Estimated Glomerular Filt Rate 81 ml/min (>60); GFR (African American) 98 ML/MIN (>60); Glucose 99 mg/dl (74-100); Potassium 3.8 mmoL/L (3.5-5.1); Sodium 137 mmol/L (136-145)
[2021-11-14 07:18] LABS: Basophils # 0.1 K/mm3 (0-0.2); Basophils % 0.9 % (0.1-2.0); Eosinophils # 0.2 K/mm3 (0.0-0.4); Eosinophils % 2.8 % (0.1-12.0); Hematocrit 40.1 % (42.0-52.0); Hemoglobin 12.8 g/dL (14.1-18.0); Lymphocytes # 1.4 K/mm3 (0.7-4.5); Lymphocytes % 18.4 % (10-50); Mean Corpuscular Hemoglobin 32.9 pg (27.0-31.2); Mean Corpuscular Volume 102.7 fl (80-94); Mean Platelet Volume 8.1 fl (7.4-10.4); Monocytes # 0.5 K/mm3 (0.1-1.0); Monocytes % 7.1 % (1.7-9.3); Neutrophils # 5.4 K/mm3 (1.8-7.8); Neutrophils % 70.9 % (37.0-80.0); Platelet Count 279 K/mm3 (142-424); Red Cell Distribution Width 13.4 % (11.5-17.5); White Blood Count 7.6 K/mm3 (4.8-10.8)
--- NOTE | 2021-11-14 08:09 | HMH.ACPN2 ---
Internal Medicine - PN: Subj *Date: 11/15/21 *Time: 06:18 Interval history: had fever last pm and more confused - sl cough Exam Vital signs and Labs for Last 24 Hours: Temp Pulse Resp BP Pulse Ox 101.0 F H 83 18 196/88 H 95 11/14/21 07:35 11/14/21 07:35 11/14/21 07:35 11/14/21 07:35 11/14/21 07:35 Laboratory Results - last 24 hr 11/14/21 06:23: WBC 7.6, RBC 3.90 L, Hgb 12.8 L, Hct 40.1 L, MCV 102.7 H, MCH 32.9 H, MCHC 32.0, RDW 13.4, Plt Count 279, MPV 8.1, Neut % (Auto) 70.9, Lymph % (Auto) 18.4, [place] % (Auto) 7.1, Eos % (Auto) 2.8, Baso % (Auto) 0.9, Neut # (Auto) 5.4, Lymph # (Auto) 1.4, [place] # (Auto) 0.5, Eos # (Auto) 0.2, Baso # (Auto) 0.1 11/14/21 06:23: Sodium 137, Potassium 3.8, Chloride 102, Carbon Dioxide 26, Anion Gap 12.8, BUN 15, Creatinine 0.90, Estimated Creat Clear 69, Estimated GFR 81, Est GFR ( Amer) 98, Glucose 99, Calcium 8.6 I & O for Last 24 hours: Intake & Output 11/11/21 11/12/21 11/13/21 11/14/21 11:59 11:59 11:59 11:59 Intake Total 840 / 840 940 / 940 840 / 840 240 / 240 Output Total 1325 / 1325 2600 / 2600 4500 / 4500 2900 / 2900 Balance -485 / -485 -1660 / -1660 -3660 / -3660 -2660 / -2660 Weight 195 lb 9.6 oz 196 lb 6.4 oz 194 lb 1.6 oz 185 lb 6.4 oz Microbiology Reports for the Last 24 Hours: Microbiology 11/09/21 09:35 Blood Blood Culture - Preliminary Staphylococcus hominis - Constitutional somnolent - *Routine HEENT Exam Head: Present: normocephalic Eye: Present: EOMI, PERRL ENT: Present: mucous membranes dry - *Routine Neck Exam Absent: JVD - *Routine Respiratory Exam Present: decreased breath sounds - *Routine Cardiovascular Exam Present: RRR, murmur - *Routine Abdominal Exam Present: soft - *Routine Extremities Exam Absent: calf tenderness - *Routine Skin Exam Present: intact - *Routine Neurological Exam Present: CN II-XII intact - Routine Psychiatric Exam Present: unable to assess Assessment and Plan (1) Non-STEMI (non-ST elevated myocardial infarction) Status: Acute Category: Medical Code(s): I21.4 - Non-ST elevation (NSTEMI) myocardial infarction (2) Elevated troponin Status: Acute Category: Medical Code(s): R77.8 - Other specified abnormalities of plasma proteins (3) CAD (coronary artery disease) Status: Chronic Qualifiers: Coronary Disease-Associated Artery/Lesion type: [place] artery [place] vs. transplanted heart: [place] heart Associated angina: with other forms of angina Qualified Code(s): I25.118 - Atherosclerotic heart disease of [place] coronary artery with other forms of angina pectoris Category: Medical Code(s): I25.10 - Atherosclerotic heart disease of [place] coronary artery without angina pectoris (4) HTN (hypertension) Status: Chronic Qualifiers: Hypertension type: primary hypertension Qualified Code(s): I10 - Essential (primary) hypertension Category: Medical Code(s): I10 - Essential (primary) hypertension (5) HLD (hyperlipidemia) Status: Chronic Qualifiers: Hyperlipidemia type: mixed hyperlipidemia Qualified Code(s): E78.2 - Mixed hyperlipidemia Category: Medical Code(s): E78.5 - Hyperlipidemia, unspecified (6) Multiple falls Status: Acute Category: Medical Code(s): R29.6 - Repeated falls (7) Parkinson disease Status: Acute Category: Medical Code(s): G20 - Parkinson's disease (8) Urine stream spraying Status: Acute Category: Medical Code(s): R39.198 - Other difficulties with micturition (9) Bilateral carotid bruits Status: Acute Category: Medical Code(s): R09.89 - Other specified symptoms and signs involving the circulatory and respiratory systems
--- NOTE | 2021-11-14 09:25 | PC.NURSE ---
spoke with MD regarding pt lethargy and temp
--- NOTE | 2021-11-14 09:45 | XR_ITS ---
PROCEDURE INFORMATION: Exam: XR Chest Exam date and time: 11/14/2021 9:45 AM Age: 81 years old Clinical indication: Fever and shortness of breath; Additional info: Sob/fever TECHNIQUE: Imaging protocol: XR of the chest. Views: 1 view. COMPARISON: CR XR CHEST PORTABLE 11/10/2021 6:39 AM FINDINGS: Lungs: Stable appearance of mild right basilar linear atelectasis/scarring or consolidation. Mild left basilar linear atelectasis/fibrosis. No new focal consolidation. Old granulomatous disease. Pleural spaces: Unremarkable. No pleural effusion. No pneumothorax. Heart/Mediastinum: Mild prominence of the cardiac silhouette, accentuated by the AP projection. Bones/joints: Osteoarthritic changes. IMPRESSION: Stable exam as above.
[2021-11-15] VITALS (7 sets, daily range): BP systolic 87–153; BP diastolic 46–74; PULSE 43–64; RESP 14–18; TEMP 36.5–37.3; O2SAT 91–97; BMI 27.1
--- NOTE | 2021-11-15 04:16 | PC.NURSE ---
Pt could state name and and he was at a hospital at beginning of shift. As night progressed pt has become more confused, yelling out instead of using call light, when presenting to room patient does not know what he wants. Pt has slept in intervals this shift. Pt is on RA with O2 sat >90%. Pt had no c/o of pain this shift.
[2021-11-15 06:47] LABS: Basophils # 0.1 K/mm3 (0-0.2); Basophils % 0.9 % (0.1-2.0); Eosinophils # 0.4 K/mm3 (0.0-0.4); Eosinophils % 5.9 % (0.1-12.0); Hematocrit 34.6 % (42.0-52.0); Lymphocytes # 1.3 K/mm3 (0.7-4.5); Lymphocytes % 21.9 % (10-50); Mean Corpuscular HGB Conc 31.9 g/dL (31.8-35.4); Mean Corpuscular Hemoglobin 32.6 pg (27.0-31.2); Mean Corpuscular Volume 102.3 fl (80-94); Mean Platelet Volume 8.5 fl (7.4-10.4); Monocytes # 0.4 K/mm3 (0.1-1.0); Monocytes % 6.6 % (1.7-9.3); Neutrophils # 3.8 K/mm3 (1.8-7.8); Neutrophils % 64.7 % (37.0-80.0); Platelet Count 242 K/mm3 (142-424); Red Blood Count 3.38 M/mm3 (4.60-6.20); Red Cell Distribution Width 13.5 % (11.5-17.5); White Blood Count 5.9 K/mm3 (4.8-10.8)
[2021-11-15 07:12] LABS: Anion Gap 11.9 mEq/L (5-15); Blood Urea Nitrogen 18 mg/dl (9-20); Calcium 7.8 mg/dl (8.4-10.2); Carbon Dioxide 23 mmol/L (22.0-30.0); Chloride 107 mmol/L (98-107); Creatinine Clearance Estimated 72 mL/min (50-200); Estimated Glomerular Filt Rate 72 ml/min (>60); GFR (African American) 87 ML/MIN (>60); Glucose 95 mg/dl (74-100); Potassium 3.9 mmoL/L (3.5-5.1); Sodium 138 mmol/L (136-145)
--- NOTE | 2021-11-15 09:22 | HMH.ACPN2 ---
Internal Medicine - PN: Subj *Date: 11/15/21 *Time: 09:24 Interval history: 81-year-old male patient sitting up in bed, he is more alert this morning. at bedside. Explained we're waiting for jail in [place], [place] to accept him which will possibly be today but probably tomorrow. Patient and deny any questions. Exam Vital signs and Labs for Last 24 Hours: Temp Pulse Resp BP Pulse Ox 99.1 F 64 18 153/73 H 93 L 11/15/21 08:00 11/15/21 08:00 11/15/21 08:00 11/15/21 08:00 11/15/21 08:00 Laboratory Results - last 24 hr 11/15/21 06:24: WBC 5.9, RBC 3.38 L, Hgb 11.0 L, Hct 34.6 L, MCV 102.3 H, MCH 32.6 H, MCHC 31.9, RDW 13.5, Plt Count 242, MPV 8.5, Neut % (Auto) 64.7, Lymph % (Auto) 21.9, [place] % (Auto) 6.6, Eos % (Auto) 5.9, Baso % (Auto) 0.9, Neut # (Auto) 3.8, Lymph # (Auto) 1.3, [place] # (Auto) 0.4, Eos # (Auto) 0.4, Baso # (Auto) 0.1 11/15/21 06:24: Sodium 138, Potassium 3.9, Chloride 107, Carbon Dioxide 23, Anion Gap 11.9, BUN 18, Creatinine 1.00, Estimated Creat Clear 72, Estimated GFR 72, Est GFR ( Amer) 87, Glucose 95, Calcium 7.8 L I & O for Last 24 hours: Intake & Output 11/12/21 11/13/21 11/14/21 11/15/21 23:59 23:59 23:59 23:59 Intake Total 1060 / 1060 480 / 480 240 / 240 360 / 360 Output Total 4875 / 4875 2925 / 2925 1975 / 2775 800 / 800 Balance -3815 / -3815 -2445 / -2445 -1735 / -2535 -440 / -440 Weight 196 lb 6.4 oz 194 lb 1.6 oz 185 lb 6.4 oz 194 lb 3.2 oz Microbiology Reports for the Last 24 Hours: Microbiology 11/09/21 09:35 Blood Blood Culture - Final NO GROWTH AFTER 5 DAYS 11/09/21 09:35 Blood Blood Culture - Preliminary Staphylococcus hominis - Constitutional no acute distress, chronically ill appearing - *Routine HEENT Exam Head: Present: normocephalic Eye: Present: EOMI ENT: Present: mucous membranes moist - *Routine Neck Exam Present: trachea midline. Absent: tracheal deviation - *Routine Respiratory Exam Present: CTA bilaterally. Absent: accessory muscle use - *Routine Cardiovascular Exam Present: RRR - *Routine Abdominal Exam Present: soft, normoactive bowel sounds. Absent: tenderness, firm - *Routine Extremities Exam Present: full ROM, pulses intact. Absent: cyanosis, clubbing - *Routine Skin Exam Present: intact, dry. Absent: cyanosis, erythema - *Routine Neurological Exam Present: alert, altered mental status. Absent: motor deficit - Routine Psychiatric Exam Present: unable to assess Assessment and Plan (1) Non-STEMI (non-ST elevated myocardial infarction) Status: Acute Category: Medical Code(s): I21.4 - Non-ST elevation (NSTEMI) myocardial infarction (2) Elevated troponin Status: Acute Category: Medical Code(s): R77.8 - Other specified abnormalities of plasma proteins (3) CAD (coronary artery disease) Status: Chronic Qualifiers: Coronary Disease-Associated Artery/Lesion type: [place] artery [place] vs. transplanted heart: [place] heart Associated angina: with other forms of angina Qualified Code(s): I25.118 - Atherosclerotic heart disease of [place] coronary artery with other forms of angina pectoris Category: Medical Code(s): I25.10 - Atherosclerotic heart disease of [place] coronary artery without angina pectoris (4) HTN (hypertension) Status: Chronic Qualifiers: Hypertension type: primary hypertension Qualified Code(s): I10 - Essential (primary) hypertension Category: Medical Code(s): I10 - Essential (primary) hypertension (5) HLD (hyperlipidemia) Status: Chronic Qualifiers: Hyperlipidemia type: mixed hyperlipidemia Qualified Code(s): E78.2 - Mixed hyperlipidemia Category: Medical Code(s): E78.5 - Hyperlipidemia, unspecified (6) Multiple falls Status: Acute Category: Medical Code(s): R29.6 - Repeated falls (7) Parkinson disease Status: Acute Category: Medical C
--- NOTE | 2021-11-15 18:00 | PC.NURSE ---
Addendum entered by Ofelia Tobias RN 11/15/21 18:02: Pt has only been oriented to self this shift and occasionally place as well Original Note: Pt has been up to the chair majority of this shift and has slept. Pt has been anywhere from a max assist to a x1 assist this shift. Jarvis cath has been removed this shift and pt has been continent and voided per urinal w/ cloudy, light yellow urine noted. Active BM in all 4 quads, no BM noted this shift. Pt did received a full bed bath and linen change per nursing staff this shift. Pt's has been in and out visiting w/ pt. No other acute changes or complaints, will continue to monitor.
[2021-11-16] VITALS: BP 93/56; PULSE 60; PULSE 94; RESP 18; TEMP 36.7; O2SAT 90
[2021-11-16 04:00] VITALS: BP 153/73; PULSE 55; PULSE 63; RESP 16; TEMP 36.8; O2SAT 95
[2021-11-16 06:12] LABS: Basophils # 0.1 K/mm3 (0-0.2); Basophils % 1.2 % (0.1-2.0); Eosinophils # 0.3 K/mm3 (0.0-0.4); Eosinophils % 5.6 % (0.1-12.0); Hematocrit 37.9 % (42.0-52.0); Hemoglobin 11.7 g/dL (14.1-18.0); Lymphocytes # 1.5 K/mm3 (0.7-4.5); Lymphocytes % 23.6 % (10-50); Mean Corpuscular HGB Conc 30.9 g/dL (31.8-35.4); Mean Corpuscular Hemoglobin 32.4 pg (27.0-31.2); Mean Corpuscular Volume 104.8 fl (80-94); Mean Platelet Volume 8.3 fl (7.4-10.4); Monocytes # 0.4 K/mm3 (0.1-1.0); Monocytes % 6.8 % (1.7-9.3); Neutrophils # 3.9 K/mm3 (1.8-7.8); Neutrophils % 62.8 % (37.0-80.0); Platelet Count 257 K/mm3 (142-424); Red Blood Count 3.62 M/mm3 (4.60-6.20); Red Cell Distribution Width 13.4 % (11.5-17.5); White Blood Count 6.1 K/mm3 (4.8-10.8)
[2021-11-16 06:20] LABS: Anion Gap 9.8 mEq/L (5-15); Blood Urea Nitrogen 15 mg/dl (9-20); Carbon Dioxide 25 mmol/L (22.0-30.0); Chloride 107 mmol/L (98-107); Creatinine Clearance Estimated 72 mL/min (50-200); Estimated Glomerular Filt Rate 72 ml/min (>60); GFR (African American) 87 ML/MIN (>60); Glucose 100 mg/dl (74-100); Potassium 3.8 mmoL/L (3.5-5.1); Sodium 138 mmol/L (136-145)
[2021-11-16 08:00] VITALS: BP 167/86; PULSE 70; RESP 17; TEMP 37.1; O2SAT 91; O2SAT 97
--- NOTE | 2021-11-16 09:26 | XR_ITS ---
FINAL REPORT CLINICAL HISTORY: SOA COMPARISON: November 14, 2021 FINDINGS: Two views of the chest were obtained. The heart size and pulmonary vascularity are within normal limits. The mediastinum is normal. Persistent bibasilar opacity with partially improved aeration. There is no pneumothorax. The bony thorax is intact. IMPRESSION: Persistent bibasilar opacity favors atelectasis over pneumonia. Reviewed, Interpreted and Dictated by Milton Shepard III, MD Transcribed by Dinah Lee Authenticated by Milton Shepard III, MD on 11/16/2021 11:08:40 AM [facility]
[2021-11-16 10:34] LABS: Coronavirus 19, PCR Not Detected (NotDetected); Influenza A, PCR Not Detected (NotDetected); Influenza B, PCR Not Detected (NotDetected)
--- NOTE | 2021-11-16 10:41 | PC.NURSE ---
Pt has been down and back for chest xray
--- NOTE | 2021-11-16 11:01 | HMH.DCSUM ---
General - General Admission date:: 11/09/21 Discharge date: 11/16/21 HPI HPI: 81-year-old gentleman who presented to the emergency department after a falling episode. The patient was brought in via ambulance. He does have Parkinson's disease. Per ed record states that for the last 4 days he has been having difficulty ambulating and really weak and could not stand on his own. This was a change for him. Today he was walking to the bathroom and using a small table for support when it broke and he fell. His reported that he has fallen four times in the last month. Upon arrival to the emergency department the patient is found to have an elevated troponin at 0.11. Pt denies any chest pressure or pain. Pt keeps stating he has a hole around his bag that if he hold the head of his penis closed he can urinate out of hole and this has been going on for about a month. Pt states he thinks this is what is causing all his problems. Hospital Course Hospital Course: 81-year-old gentleman who presented to the emergency department after a falling episode. The patient was brought in via ambulance. He does have Parkinson's disease. Per ed record states that for the last 4 days he has been having difficulty ambulating and really weak and could not stand on his own. This was a change for him. Today he was walking to the bathroom and using a small table for support when it broke and he fell. His reported that he has fallen four times in the last month. Upon arrival to the emergency department the patient is found to have an elevated troponin at 0.11. Pt denies any chest pressure or pain. Pt keeps stating he has a hole around his bag that if he hold the head of his penis closed he can urinate out of hole and this has been going on for about a month. Pt states he thinks this is what is causing all his problems. 11/09/21 CXR: FINDINGS: SINGLE VIEW CHEST The heart is normal in size. The mediastinum is unremarkable. There is bibasilar atelectasis. There is no pneumothorax. IMPRESSION: Bibasilar atelectasis. Reviewed, Interpreted and Dictated by Milton Shepard III, MD 11/09/[address]: FINDINGS: Axial images of the head were obtained without contrast. Coronal reformatted images were also obtained. This study was performed with techniques to keep radiation doses as low as reasonably achievable (ALARA). Individualized dose reduction techniques using automated exposure control or adjustment of mA and/or kV according to the patient's size were employed. There is generalized age-appropriate atrophy. Periventricular low-attenuation areas are seen consistent with moderate chronic ischemic changes. There is left frontal encephalomalacia. There is no evidence of intracranial hemorrhage or mass. There is no evidence of acute infarct. There is no evidence of shift of the midline structures. No skull abnormality is seen on the bone window images. There is mild mucosal thickening of the ethmoid air cells. IMPRESSION: Atrophy and moderate periventricular chronic ischemic changes. No acute intracranial abnormality identified. Reviewed, Interpreted and Dictated by Milton Shepard III, MD 11/09/21 Cardiac Catherization: ANGIOGRAPHIC RESULTS The left main artery Has a distal 70 to 80% stenosis The left anterior descending artery Ostially occluded but fills entirely via large [id number] collaterals from the dominant right coronary The circumflex artery Is nondominant yet still large and gives rise to a high small ramus intermedius. The circumflex artery has a proximal concentric 90% stenosis. It gives rise to a large first obtuse marginal artery which also has an ostial 90% stenosis The right coronary artery Is a large dominant vessel and has a proximal concentric 80% stenosis followed by a stent The AMARO ventriculogram reveals Normal 65% The left ventricular end-diastolic pressure 15 mmHg IMPRESSION Critical coronary
[2021-11-16 11:43] VITALS: BP 121/60; PULSE 54; RESP 18; TEMP 36.7; O2SAT 98
[2021-11-16 12:00] VITALS: PULSE 50
--- NOTE | 2021-11-16 13:44 | PC.NURSE ---
Spoke with sarah Dick from [facility] and gave report
--- NOTE | 2021-11-16 14:21 | HMH.PHACLD ---
[facility] discharge medication LIST REVIEWED FOR APPROPRIATE MEDICATIONS FOLLOWING STENTS. PATIENT IS ON the following medications: -ATORVASTATIN -ASPIRIN -BISOPROLOL -LISINOPRIL -PLAVIX
--- NOTE | 2021-11-17 11:42 | CARE MANAGER ---
Called and spoke with Dedrick Diaz post discharge, spoke with nurse and she states that patient is doing well and had no needs.
== END 2021-11-16 14:47 | DRG 246 ==
LOC: ER 11:09 → 2ND 11:25
PROVIDERS: Internal Medicine; Nurse Practitioner Family; Admitting Provider Emergency Medicine; Emergency Provider Emergency Medicine; Visit Provider Emergency Medicine
DX: I21.4 Non-ST elevation (NSTEMI) myocardial infarction (principal); G20 Parkinson's disease; I25.10 Atherosclerotic heart disease of native coronary artery without angina pectoris; I10 Essential (primary) hypertension; E78.5 Hyperlipidemia, unspecified; R29.6 Repeated falls; R39.198 Other difficulties with micturition; Z95.5 Presence of coronary angioplasty implant and graft; R50.9 Fever, unspecified; R41.0 Disorientation, unspecified
CPT/HCPCS: 36415; 70371; 70450; 71045; 71046; 71250; 72125; 72128; 72131; 72170; 74178; 80048; 80053; 80061; 80076; 81001; 82550; 83605; 84443; 84484; 85025; 85347; 87040; 87077; 87086; 87186; 92507; 92526; 92610; 92611; 92928; 92929; 92941; 93005; 93306; 93458; 93880; 96365; 97110; 97116; 97162; 97166; 97530; 99152; 99153; C1725; C1769; C1874; C1876; C1894; C9600; C9601; C9606; C9803; J0696; J1644; J2405; J2543; Q9967; U0003; U0005

== ENCOUNTER 2023-03-02 22:36 | Observation (INO) | payer MEDICARE, OTHER, SELFPAY ==
[2023-03-02 22:36] VITALS: BP 161/97; PULSE 92; RESP 16; TEMP 36.5; O2SAT 97; BMI 25.1
--- NOTE | 2023-03-02 22:41 | XR_ITS ---
PROCEDURE INFORMATION: Exam: XR Pelvis Exam date and time: 03/02/2023 11:19 PM Age: 82 years old Clinical indication: Injury or trauma; Fall; Blunt trauma (contusions or hematomas); Does not apply; Pelvic region TECHNIQUE: Imaging protocol: Radiologic exam of the pelvis. Views: 1 or 2 view. COMPARISON: CT ABDOMEN PELVIS WO CON 03/02/2023 11:13 PM FINDINGS: Bones/joints: there are moderate degenerative changes both hip joints with joint space narrowing and subchondral sclerosis. Degenerative changes lower lumbar spine partially visualized. There is no fracture, deformity or malalignment. Soft tissues: Unremarkable. IMPRESSION: No acute bony abnormalities.
[2023-03-02 22:46] LABS: Basophils % 0.3 % (0.1-2.0); Eosinophils % 0.5 % (0.1-12.0); Hematocrit 47.1 % (42.0-52.0); Hemoglobin 15.6 g/dL (14.1-18.0); Lymphocytes # 1.4 K/mm3 (0.7-4.5); Lymphocytes % 18.1 % (10-50); Mean Corpuscular HGB Conc 33.2 g/dL (31.8-35.4); Mean Corpuscular Hemoglobin 32.1 pg (27.0-31.2); Mean Corpuscular Volume 96.8 fl (80-94); Mean Platelet Volume 7.7 fl (7.4-10.4); Monocytes # 0.6 K/mm3 (0.1-1.0); Monocytes % 8.1 % (1.7-9.3); Neutrophils # 5.7 K/mm3 (1.8-7.8); Neutrophils % 72.9 % (37.0-80.0); Platelet Count 221 K/mm3 (142-424); Red Blood Count 4.86 M/mm3 (4.60-6.20); Red Cell Distribution Width 13.5 % (11.5-17.5); White Blood Count 7.9 K/mm3 (4.8-10.8)
--- NOTE | 2023-03-02 22:47 | CT_ITS ---
PROCEDURE INFORMATION: Exam: CT Lumbar Spine Without Contrast Exam date and time: 03/02/2023 11:11 PM Age: 82 years old Clinical indication: Injury or trauma; Fall TECHNIQUE: Imaging protocol: Computed tomography of the lumbar spine without contrast. Radiation optimization: All CT scans at this facility use at least one of these dose optimization techniques: automated exposure control; mA and/or kV adjustment per patient size (includes targeted exams where dose is matched to clinical indication); or iterative reconstruction. REPORTING DATA: Count of CT and Cardiac NM exams in prior 12 months: This patient has received 0 known CTs and 0 known cardiac nuclear medicine studies in the 12 months prior to the current study. COMPARISON: CT THORACIC SPINE WO CON 03/02/2023 11:[address] lumbar spine performed November 10, 2021 FINDINGS: Bones/joints: Lumbar curvature alignment is unchanged and unremarkable. Moderate degenerative changes lower lumbar spine asymmetric disc space narrowing, endplate sclerosis, osteophytic lipping and facet arthrosis. Findings are most pronounced at L4-L5. There is a chronic asymmetric endplate deformity involving the left lateral endplate of L4 unchanged likely related to old injury. There are no acute compression fractures spondylolysis or spondylolisthesis. There is multilevel degenerative spinal stenosis that appears to be at least moderate in severity. Vasculature: Abdominal aorta is diffusely calcified. Soft tissues: No prevertebral paraspinal soft tissue swelling. Multiple right renal cysts and nonobstructing calculi both kidneys. IMPRESSION: 1. No acute bony abnormalities. 2. Multilevel degenerative spinal stenosis and chronic compression deformity left lateral endplate of L4, stable.
--- NOTE | 2023-03-02 22:47 | CT_ITS ---
PROCEDURE INFORMATION: Exam: CT Cervical Spine Without Contrast Exam date and time: 03/02/2023 11:07 PM Age: 82 years old Clinical indication: Injury or trauma; Fall TECHNIQUE: Imaging protocol: Computed tomography of the cervical spine without contrast. Radiation optimization: All CT scans at this facility use at least one of these dose optimization techniques: automated exposure control; mA and/or kV adjustment per patient size (includes targeted exams where dose is matched to clinical indication); or iterative reconstruction. REPORTING DATA: Count of CT and Cardiac NM exams in prior 12 months: This patient has received 0 known CTs and 0 known cardiac nuclear medicine studies in the 12 months prior to the current study. COMPARISON: CT CERVICAL SPINE WO CON 11/09/2021 9:43 AM FINDINGS: Bones/joints: No acute fracture. There is slight grade 1 anterolisthesis C5 on C6. There is moderate degenerative disc disease at C5-C6 and C6-C7. Lungs: Not visualized. Soft tissues: Unremarkable. IMPRESSION: No acute findings.
--- NOTE | 2023-03-02 22:47 | CT_ITS ---
PROCEDURE INFORMATION: Exam: CT Chest Without Contrast; Diagnostic Exam date and time: 03/02/2023 11:13 PM Age: 82 years old Clinical indication: Injury or trauma; Fall TECHNIQUE: Imaging protocol: Diagnostic computed tomography of the chest without contrast. Radiation optimization: All CT scans at this facility use at least one of these dose optimization techniques: automated exposure control; mA and/or kV adjustment per patient size (includes targeted exams where dose is matched to clinical indication); or iterative reconstruction. REPORTING DATA: Count of CT and Cardiac NM exams in prior 12 months: This patient has received 0 known CTs and 0 known cardiac nuclear medicine studies in the 12 months prior to the current study. COMPARISON: CT CHEST WO CON 11/12/2021 10:28 AM FINDINGS: Lungs: Chronic granulomatous calcifications within the mediastinum both hilum as well as lower lung zones, stable. Mild dependent hypoventilatory lung changes and scattered minor atelectatic changes otherwise lung hunter are clear. Pleural spaces: Unremarkable. No pneumothorax. No pleural effusion. Heart: Heart is mildly enlarged. Extensive calcification of coronary arteries. No significant pericardial effusion. Lymph nodes: Unremarkable. No enlarged lymph nodes. 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 Spleen: There are scattered calcified granulomas within the spleen, longstanding, otherwise spleen is unremarkable. Kidneys and ureters: Small nonobstructing left renal stones. Bilateral renal cysts more numerous and larger on the right difficult to adequately assessed on this exam. Bones/joints: Unremarkable. No acute fracture. Soft tissues: Unremarkable. IMPRESSION: 1. No acute findings within the chest. No evidence of intrathoracic injury. 2. Additional nonemergent findings as above..
--- NOTE | 2023-03-02 22:47 | CT_ITS ---
PROCEDURE INFORMATION: Exam: CT Abdomen And Pelvis Without Contrast Exam date and time: 03/02/2023 11:13 PM Age: 82 years old Clinical indication: Injury or trauma; Fall TECHNIQUE: Imaging protocol: Computed tomography of the abdomen and pelvis without contrast. Radiation optimization: All CT scans at this facility use at least one of these dose optimization techniques: automated exposure control; mA and/or kV adjustment per patient size (includes targeted exams where dose is matched to clinical indication); or iterative reconstruction. REPORTING DATA: Count of CT and Cardiac NM exams in prior 12 months: This patient has received 0 known CTs and 0 known cardiac nuclear medicine studies in the 12 months prior to the current study. COMPARISON: CT ABDOMEN PELVIS WO/W CON 11/10/2021 9:06 AM FINDINGS: Lungs: Lung bases: Please refer to discussion of CT chest exam. Few scattered chronic granulomatous calcifications within the liver which is otherwise unremarkable. Liver: Normal. No mass. Gallbladder and bile ducts: Normal. No calcified stones. No ductal dilation. Pancreas: Unremarkable. Main pancreatic duct is not significantly dilated. Spleen: There are scattered calcified granulomas within the spleen, longstanding, otherwise spleen is unremarkable. Adrenal glands: Normal. No mass. Kidneys and ureters: There are multiple right renal cysts measuring up to 5 cm and 2.5 cm midpole cyst left kidney some of which cannot be resolved as simple cysts on this exam. There is nonobstructing calculi right kidney and 2 nonobstructing calculi left kidney. Stomach and bowel: There are multiple diverticuli throughout the distal portion of the large bowel without evidence of diverticulitis. Appendix: No evidence of appendicitis. Intraperitoneal space: Unremarkable. No free air. No significant fluid collection. Vasculature: Abdominal aorta and iliac vessels are diffusely calcified. There is no aortic aneurysm. Lymph nodes: Unremarkable. No enlarged lymph nodes. Urinary bladder: There is mild bladder wall thickening with some residual anterior prevesical fat stranding improved from previous exam likely related to previous bladder perforation. Reproductive: Prostate gland is mildly enlarged. There appears to be a partially undescended right testicle in the right lower inguinal cavity. Bones/joints: There are moderate degenerative changes lower lumbar spine and both hip joints. Chronic endplate deformity L4 vertebral body, stable. No acute bony abnormalities detected. Soft tissues: Unremarkable. IMPRESSION: 1. No evidence of abdominal or pelvic injury. 2. Additional nonemergent findings as discussed above. COMMENTS: Consistent with the [employer]'s Incidental Findings Committee white paper (J Am Haider Radiol 2018): Any incidental renal lesion less than 1 cm or classified as too small to characterize, or any incidental cystic renal lesion characterized as simple-appearing, is likely benign. No follow-up imaging is recommended for these lesions per consensus recommendations based on imaging criteria.
--- NOTE | 2023-03-02 22:47 | XR_ITS ---
PROCEDURE INFORMATION: Exam: XR Chest Exam date and time: 03/02/2023 11:19 PM Age: 82 years old Clinical indication: Injury or trauma; Fall; Blunt trauma (contusions or hematomas) TECHNIQUE: Imaging protocol: Radiologic exam of the chest. Views: 1 view. COMPARISON: CT CHEST WO CON 03/02/2023 11:13 PM FINDINGS: Lungs: Unremarkable. No consolidation. Scattered chronic granulomatous calcifications. Pleural spaces: Unremarkable. No pleural effusion. No pneumothorax. Heart/Mediastinum: Unremarkable. No cardiomegaly. Bones/joints: There is mild deformity mid shaft right clavicle that appears to be longstanding Other findings: . IMPRESSION: 1. Mild deformity mid shaft right clavicle that appears to be longstanding but should be confirmed with clinical exam and history. 2. Remainder the chest exam is unremarkable.
--- NOTE | 2023-03-02 22:47 | CT_ITS ---
PROCEDURE INFORMATION: Exam: CT Thoracic Spine Without Contrast Exam date and time: 03/02/2023 11:09 PM Age: 82 years old Clinical indication: Injury or trauma; Fall TECHNIQUE: Imaging protocol: Computed tomography of the thoracic spine without contrast. Radiation optimization: All CT scans at this facility use at least one of these dose optimization techniques: automated exposure control; mA and/or kV adjustment per patient size (includes targeted exams where dose is matched to clinical indication); or iterative reconstruction. REPORTING DATA: Count of CT and Cardiac NM exams in prior 12 months: This patient has received 0 known CTs and 0 known cardiac nuclear medicine studies in the 12 months prior to the current study. COMPARISON: CT THORACIC SPINE WO CON 11/09/2021 9:48 AM FINDINGS: Bones/joints: Normal alignment. No compression fracture or acute bony abnormality. No spondylolisthesis. Disc heights are fairly well maintained. No severe spinal canal stenosis. No significant neural foraminal narrowing. Soft tissues: Unremarkable. IMPRESSION: Unremarkable CT exam of the thoracic spine.
--- NOTE | 2023-03-02 22:47 | CT_ITS ---
PROCEDURE INFORMATION: Exam: CT Head Without And With Contrast Exam date and time: 03/02/2023 11:16 PM Age: 82 years old Clinical indication: Injury or trauma; Fall; Additional info: Chi TECHNIQUE: Imaging protocol: Computed tomography of the head without and with contrast. Radiation optimization: All CT scans at this facility use at least one of these dose optimization techniques: automated exposure control; mA and/or kV adjustment per patient size (includes targeted exams where dose is matched to clinical indication); or iterative reconstruction. Contrast material: ISOVUE; Contrast volume: 100 ml; Contrast route: IV; REPORTING DATA: Count of CT and Cardiac NM exams in prior 12 months: This patient has received 0 known CTs and 0 known cardiac nuclear medicine studies in the 12 months prior to the current study. COMPARISON: CT (Coronal, HEAD, HELICAL HEAD WO) 03/02/2023 10:22 PM FINDINGS: Brain: There is a chronic left frontal lobe infarct. There is moderate small vessel disease. There is no evidence of acute parenchymal hemorrhage, extra-axial collection, or acute infarction. There is no mass effect, midline shift, or downward herniation. There is no pathologic enhancement. Cerebral ventricles: No ventriculomegaly. Paranasal sinuses: Visualized sinuses are unremarkable. No fluid levels. Mastoid air cells: Visualized mastoid air cells are well aerated. Bones/joints: Unremarkable. No acute fracture. Soft tissues: Unremarkable. IMPRESSION: 1. No evidence of acute intracranial process. 2. Chronic left frontal lobe infarct. Moderate small vessel disease.
[2023-03-02 22:48] LABS: Chloride 102 mmol/L (98-107); Potassium 4.4 mmoL/L (3.5-5.1); Sodium 140 mmol/L (136-145)
[2023-03-02 22:51] LABS: Alanine Aminotransferase 19 U/L (12-78); Albumin Level 4.7 g/dl (3.5-5.0); Albumin/Globulin Ratio 1.1 (1.1-1.8); Alkaline Phosphatase 113 U/L (38-126); Anion Gap 15.4 mEq/L (5-15); Aspartate Amino Transferase 39 U/L (17-59); Bilirubin,Total 1.2 mg/dl (0.2-1.3); Blood Urea Nitrogen 19 mg/dl (9-20); Calcium 9.6 mg/dl (8.4-10.2); Carbon Dioxide 27 mmol/L (22.0-30.0); Creatinine Clearance Estimated 66 mL/min (50-200); Estimated Glomerular Filt Rate 72 ml/min (>60); GFR (African American) 87 ML/MIN (>60); Globulin 4.4 g/dL (1.3-3.2); Glucose 119 mg/dl (74-100); Total Protein,Serum 9.1 g/dl (6.3-8.2)
[2023-03-02 23:05] LABS: Chloride 102 mmol/L (98-107); Potassium 4.4 mmoL/L (3.5-5.1); Sodium 141 mmol/L (136-145)
[2023-03-02 23:08] LABS: Alanine Aminotransferase 18 U/L (12-78); Albumin Level 4.7 g/dl (3.5-5.0); Albumin/Globulin Ratio 1.1 (1.1-1.8); Alkaline Phosphatase 112 U/L (38-126); Anion Gap 16.4 mEq/L (5-15); Aspartate Amino Transferase 39 U/L (17-59); Bilirubin,Total 1.1 mg/dl (0.2-1.3); Blood Urea Nitrogen 19 mg/dl (9-20); Calcium 9.6 mg/dl (8.4-10.2); Carbon Dioxide 27 mmol/L (22.0-30.0); Creatine Kinase 137 U/L (55-170); Creatinine Clearance Estimated 66 mL/min (50-200); Estimated Glomerular Filt Rate 72 ml/min (>60); GFR (African American) 87 ML/MIN (>60); Globulin 4.2 g/dL (1.3-3.2); Glucose 120 mg/dl (74-100); Total Protein,Serum 8.9 g/dl (6.3-8.2)
[2023-03-02 23:10] LABS: Ethyl Alcohol < 10 mg/dl (0-10); INR 0.92 (0.9-1.1)
[2023-03-02 23:20] LABS: Troponin I 0.06 ng/ml (0.00-0.034)
[2023-03-03] VITALS (27 sets, daily range): BP systolic 91–167; BP diastolic 57–99; PULSE 61–100; RESP 16–18; TEMP 36.6–37.1; O2SAT 95–99; BMI 24.0
--- NOTE | 2023-03-03 | IR_ITS ---
APPROVED REPORT Patient Location: Inpatient Drug Safety Scientist: ALIN Kent RT (R) PROCEDURES Left heart catheterization Left ventriculogram Selective coronary angiogram INDICATION Known coronary artery disease, Elevated troponin, Acute coronary syndrome Informed consent was obtained prior to the procedure. COMPLICATIONS None Estimated Blood Loss: Less than 10 ml TECHNIQUE One percent lidocaine was used to anesthetize the right groin. The right femoral artery was accessed via the Seldinger technique. A 4-Greenlandic sheath was placed in the right femoral artery. The JL-4 and JR-4 catheter was also used to perform left heart catheterization left ventriculogram and selective coronary angiogram. At the end of the procedure the patient was transferred to the post-op holding area in stable condition for arterial sheath removal. ANGIOGRAPHIC RESULTS The left main artery Has a distal eccentric 30 to 40% stenosis representing in-stent restenosis The left anterior descending artery Ostially occluded however feels via right to left collaterals The circumflex artery Nondominant yet still large and has stents in the proximal segment which are widely patent with minimal in-stent restenosis and excellent distal transitioning into a large obtuse marginal artery The right coronary artery Is a large dominant vessel with stents in the proximal mid and distal segment in a noncontiguous manner. The stents are widely patent in the midportion of the right coronary has a 30 to 40% concentric stenotic lesion. The distal right coronary artery sends a large collateral network to the LAD mostly through the posterior descending artery and then fills the majority of the LAD in a retrograde manner The AMARO ventriculogram reveals Normal 55 to 60% The left ventricular end-diastolic pressure 10 mmHg IMPRESSION Coronary artery disease as described above Normal ejection fraction Chronically occluded LAD which fills via Rich and large right to left collaterals Normal left ventricular end-diastolic pressure PLAN 1. Continue medical management for coronary artery disease Electronically signed by : Edis Zhu MD 03/03/2023 14:50:29
[2023-03-03 00:59] LABS: Microscopic, Urine URINE MICROSCOPIC (MICROSCOPIC)
[2023-03-03 01:02] LABS: Appearance,Urine CLEAR (Clear); Bilirubin,Urine Negative (Negative); Blood, Urine TRACE-I (Negative); Color,Urine YELLOW (Yellow); Glucose,Urine (UA) Negative (Negative); Ketones,Urine TRACE (Negative); Leukocyte Esterase,Urine Negative (Negative); Nitrate,Urine Negative (Negative); PH,Urine 6.5 (5.0-8.5); Protein,Urine Negative (Negative); Specific Gravity, Urine <= 1.005 (1.005-1.030); Urobilinogen,Urine 0.2 EU/dl (0.2)
[2023-03-03 01:18] LABS: Bacteria,Urine 1+ /lpf; Mucus,Urine 1+ /lpf; Squamous Epithelial Cell,Urine Occasional #/hpf (0-5)
--- NOTE | 2023-03-03 01:43 | EXP.HP ---
History of Present Illness *Admission Date: 03/03/23 *Reason for visit:: Fall *History of present illness: Mr. Bronson is a 82-year-old male with a past medical history of Parkinson's, HTN and Hyperlipidemia. He presents to [facility] due to he and his falling in the home. The patient was seen on admission in the ER. He reports that his fell and then he fell trying to help her. He reports that he is having falls frequently. He called 911. Per ER Physician EMS reported unsafe living conditions on arrival. Both the and were brought into the ER for evaluation. In the ER the patient was found to have an abrasion on his left forehead. He underwent multiple imaging that included a CT of the head, cervical, lumbar spine and chest that showed no acute findings. CBC and CMP were unremarkable. Troponin was slightly elevated at 0.06. The patient will be admitted with initial impression fall. Boiler Water Tester will be consulted for APS evaluation. [facility] Disclaimer: The information contained in this section may have been updated after the patient was seen, as this information can be updated by other users. Medical History Hyperlipidemia Hypertension Parkinson disease Surgical History H/O hand surgery Social History Smoking Status: Never smoker alcohol intake: never current occupational status: retired Travel in the last 8 weeks: None household members: spouse housing: house Review of Systems Review of Systems Review of systems:: pertinent systems reviewed and negative unless documented below Constitutional Constitutional: Reports system reviewed and no additional complaints, except as documented Eyes Eyes: Reports system reviewed and no additional complaints, except as documented ENT Ears, Nose, Mouth, and Throat: Reports system reviewed and no additional complaints, except as documented *Cardiovascular Cardiovascular: Reports system reviewed and no additional complaints, except as documented *Respiratory Respiratory: Reports system reviewed and no additional complaints, except as documented *Gastrointestinal Gastrointestinal: Reports system reviewed and no additional complaints, except as documented *Genitourinary Genitourinary: Reports system reviewed and no additional complaints, except as documented *Musculoskeletal Musculoskeletal: Reports abnormal gait Integumentary/Breasts Skin/Breast: Reports system reviewed and no additional complaints, except as documented *Neurologic Neurologic: Reports abnormal gait Psychiatric Psychiatric: Reports system reviewed and no additional complaints, except as documented Endocrine Endocrine: Reports system reviewed and no additional complaints, except as documented Hematologic/Lymphatic Hematologic/Lymphatic: Reports system reviewed and no additional complaints, except as documented Allergic/Immunologic Allergic/Immunologic: Reports system reviewed and no additional complaints, except as documented Meds Home Medications and Allergies Home Medications Medication Instructions Recorded Confirmed Type clopidogrel 75 mg tablet 75 mg PO DAILY platelet inhibitor 11/09/21 03/03/23 History levothyroxine 150 mcg tablet 150 mcg PO DAILY hypothyroidism 11/09/21 03/03/23 History pramipexole 0.125 mg tablet 0.125 mg PO QID parkinson's disease 11/09/21 03/03/23 History aspirin 81 mg tablet,delayed 81 mg PO DAILY HEART HEALTH 03/03/23 03/03/23 History release carbidopa 25 mg-levodopa 100 mg 1.5 tab PO QID PARKINSONS 03/03/23 03/03/23 History tablet trazodone 100 mg tablet 100 mg PO HS SLEEP 03/03/23 03/03/23 History New Prescriptions to Start Prescriptions: Allergies Allergy/AdvReac Type Severity Reaction Status Date / Time No Known Allergies Allergy Verified 11/09/21 16
[2023-03-03 01:51] LABS: Amphetamine/Metha Screen,Urine Negative ng/ml (<1000)
[2023-03-03 01:52] LABS: Barbiturates Screen,Urine Negative ng/ml (<200); Benzodiazepines Screen,Urine Negative ng/ml (<200)
[2023-03-03 01:54] LABS: Cannabinoid Screen,Urine Negative ng/ml (<50); Cocaine Screen,Urine Negative ng/ml (<300)
[2023-03-03 01:55] LABS: Methadone Screen,Urine Negative ng/ml (<300); Opiate Screen,Urine Negative ng/ml (<300)
[2023-03-03 01:56] LABS: Phencyclidine Screen,Urine Negative ng/ml (<25)
[2023-03-03 01:57] LABS: Coronavirus 19, PCR Not Detected (NotDetected); Influenza A, PCR Not Detected (NotDetected); Influenza B, PCR Not Detected (NotDetected)
--- NOTE | 2023-03-03 02:14 | HMH.EDFALL ---
Discharge Plan Disposition Patient Disposition: Admitted Condition: Fair Chief Complaint: Fall Clinical Impressions Clinical Impression: Elevated troponin, Falls, Parkinson disease, Closed head injury Discharge ED Provider: Shonda Cuba HPI General Chief Complaint: Fall Stated Complaint: AMS Time Seen by Provider: 03/02/23 22:40 Mode of Arrival: EMS Source of Information: Patient and EMS Limitations: No Limitations Description of Symptoms (Recalled from ER Triage Doc. by RN): EMS reports pt fell this afternoon. pt states he tripped over something and fell. pt states he is not having any pain and he did not have any pain at the time. LOC unknown. pt states he just doesn't feel well and has weakness in legs. pt is unalert to time. pt stated he thought he would come get checked out since his was coming in. History of Present Illness HPI Narrative: Patient is a 82-year male who is here secondary to fall. Patient apparently was walking in the house tripped over something and hit his right side of his head. Patient has abrasion to the forehead. Patient stated that her fell on top of him. He could not get off the floor. He has parkinsonian disorder and he has difficulty ambulating anyway and then with tripping and falling he called the ambulance to come in to get checked out. MD complaint: fall Onset (ago): minute(s) Fall from: standing Fall witnessed: yes, by family Place fall occurred: home Loss of consciousness: none Prolonged down time: no Symptoms prior to fall: none Context: tripped/slipped Location of injury: head Severity: mild Severity scale (1-10): 4 Quality: dull and aching Associated symptoms (after fall): denies Related Data Home Medications Medication Instructions Recorded Confirmed bisoprolol fumarate 5 mg tablet 5 mg PO DAILY blood pressure 11/09/21 11/09/21 carbidopa 25 mg-levodopa 100 mg 2 tab PO QID parkinsons disease 11/09/21 11/09/21 tablet clopidogrel 75 mg tablet 75 mg PO DAILY platelet inhibitor 11/09/21 11/09/21 gabapentin 300 mg capsule 300 mg PO TID neuropathic pain 11/09/21 11/09/21 levothyroxine 150 mcg tablet 150 mcg PO DAILY hypothyroidism 11/09/21 11/09/21 loratadine 10 mg capsule 10 mg PO DAILY allergies 11/09/21 11/09/21 pramipexole 0.125 mg tablet 0.25 mg PO TID parkinson's disease 11/09/21 11/09/21 sildenafil 50 mg tablet 50 mg PO DAILY PRN sexual activity 11/09/21 11/09/21 tizanidine 4 mg tablet 4 mg PO BIDP PRN muscle relaxer 11/09/21 11/09/21 Previous Rx's Medication Instructions Recorded aspirin 81 mg tablet,delayed 81 mg PO DAILY 30 days #30 tabs 11/16/21 release atorvastatin 40 mg tablet 40 mg PO HS 30 days #30 tabs 11/16/21 bisoprolol fumarate 5 mg tablet 10 mg PO DAILY 30 days #60 tabs 11/16/21 cefdinir 300 mg capsule 300 mg PO BID 3 days #6 caps 11/16/21 lisinopril 10 mg tablet 10 mg PO BID 30 days #60 tabs 11/16/21 Allergies Allergy/AdvReac Type Severity Reaction Status Date / Time No Known Allergies Allergy Verified 11/09/21 16:48 [facility] Disclaimer: The information contained in this section may have been updated after the patient was seen, as this information can be updated by other users. Medical History Hyperlipidemia Hypertension Parkinson disease Surgical History H/O hand surgery Social History Smoking Status: Never smoker alcohol intake: never current occupational status: retired Travel in the last 8 weeks: None household members: spouse housing: house ROS Obtained: Yes All systems reviewed & no additional complaints except as documented Neurologic Neurologic: Reports other (Fall with head injury and headache) Physical Exam General General appearance: alert and in distress Head Head exam: other (Right forehead abrasion noted) Eye E
--- NOTE | 2023-03-03 02:18 | ECG_ITS ---
APPROVED REPORT Exam: Resting ECG HR:94 bpm ECG Measurements Heart Rate 94 AXES MD 178 P 43 QRSd 90 QRS -34 QT 374 T 36 QTc 426 Conclusion SINUS RHYTHM LEFT AXIS DEVIATION [QRS AXIS < -30] ABNORMAL ECG UNCONFIRMED REPORT Electronically signed by : Yehuda Huerta MD 03/03/2023 21:29:14
[2023-03-03 02:20] LABS: Troponin I 0.05 ng/ml (0.00-0.034)
--- NOTE | 2023-03-03 02:23 | PC.NURSE ---
Called report to Kylah
--- NOTE | 2023-03-03 02:24 | PC.NURSE ---
0215 received report from Loraine, rn/ed nurse. 82 yo male being admitted for frequent falls, generalized weakness, NSTEMI. PMH parkinsons , htn, hld, falls. stage 2 on coccyx. needs to come up on stretcher.
--- NOTE | 2023-03-03 02:44 | PC.NURSE ---
Pt arrived to the floor via stretcher @ [id number]
--- NOTE | 2023-03-03 03:56 | PC.NURSE ---
unable to clarify/confirm all of patients meds as he is a poor historian and not all of his meds were brought in. Dangelo Garg NP notified.
--- NOTE | 2023-03-03 05:16 | PC.NURSE ---
patient is a/o x 4 but is a poor historian when comes to meds, doses. Reports he strangles on food and fluids sometimes. Says it is due to Parkinsons. also has a red area at coccyx, no open areas noted. Worried about his son Manoj as he has been known to yell at his mother on occassion. Denies physical abuse. Admits that he and his need help with ADLs. Says both he and his were in the floor for an hour before they could manage to get up .
[2023-03-03 07:02] LABS: Troponin I 0.04 ng/ml (0.00-0.034)
--- NOTE | 2023-03-03 07:21 | HMH.PHAINT1 ---
Pharmacy Intervention Comments: MEDICATION RECONCILIATION COMPLETED ON PATIENT USING EXTERNAL FILL HISTORY FROM PHARMACY. -MARIA M TERRY, JEREMID
--- NOTE | 2023-03-03 08:20 | PC.NURSE ---
COURTESY TECH NOTE; ROUNDED ON PT 0725, PT DENIED NEED FOR ASSISTANCE WITH RESTROOM, AND NEED TO REPOSITION IN BED. CALL LIGHT WITHIN REACH, NO FURTHER REQUESTS AT THIS TIME REBEL MCCLURE
[2023-03-03 08:44] LABS: Troponin I 0.04 ng/ml (0.00-0.034)
--- NOTE | 2023-03-03 09:21 | HMH.PTEV ---
Physical Therapy Evaluation Rehab PT IP Evaluation Start: 03/03/23 02:18 Freq: ONCE Status: Active Protocol: Document 03/03/23 09:12 JOSSY (Rec: 03/03/23 09:21 PHOLIANA [id number]) Subjective/History History History 82 yowm adm to [facility] after fall at home, He has hx of parkinson's disease, HTN, and HLD. He reports his is his primary caregiver, she fell, then he fell trying to assist her. He reports he generally ambulates with his assisting him without an AD, She assists him with transfers in/out of bed, and with all of his ADLs. Subjective Subjective Pt reports no c/o this am, he feels tired, but overall well. Rehab PT IP Eval Objective Appearance Patient Behavior Appropriate Patient Orientation Person,Place,Time Difficulty following instructions none Speech Pattern Clear Ambulation Patient Able to Ambulate Yes Ambulation Observation IP General Gait Pattern Observation Shuffling Step Ambulation Distance (feet) 20 Ambulation Assistive Device None Ambulation Ability Minimal x 1 (25% assist) Balance Ability to Arise Unable Sitting Balance Leans or slides in chair Standing Balance Unsteady Dynamic Sitting Balance Ability Fair Dynamic Standing Balance Ability Poor Transfers Bed Transfer Ability Minimal x 1 (25% assist) Chair Transfer Ability Minimal x 1 (25% assist) Sit to Stand Bed Transfer Ability Minimal x 1 (25% assist) Sit to Stand Chair Transfer Ability Minimal x 1 (25% assist) Rehab PT IP prob,goals,plan Problems Date of Evaluation: 03/03/23 PT IP Problems Bed Mobility,Transfers,Gait Rehab Potential Rehab Potential Good Plan PT Intervention Plan Bed Mobility,Transfers,Gait, Therapeutic Exercise PT Plan Frequency Daily Duration LOS Discharge Goals Bed Transfer Ability Minimal x 1 (25% assist) Sit to Stand Chair Transfer Ability Minimal x 1 (25% assist) Ambulation Assistive Device Rolling Walker Ambulation Distance (feet) 30 Discharge Plan PT Discharge Plan Pt is currently most appropriate for rehab placement once medically stable for d/c, but could return home if his is
--- NOTE | 2023-03-03 10:07 | EXP.CARD.CON ---
History of Present Illness History of Present Illness Consult date: 03/03/23 Requesting physician: Anthony Ortez Consult reason: shortness of breath Chief complaint: Weakness, SOA, NSTEMI Additional Medical History:: 1. Parkinson's disease A. On medication 2. CAD A. Fall with non-STEMI, 11/2021 B. [facility], 11/09/2021, multivessel stenting to left main, proximal circumflex and large first OM. Chronic ostial LAD occlusion fills by right to left collaterals. EF 65%, LVEDP 15 mmHg C. Fall with non-STEMI, 02/2023 3. Hypertension A. Echocardiogram, 11/09/2021, mild LAE, normal LV size, mild concentric LVH, EF 55% with no regional WMA. Grade 1 diastolic dysfunction. Trace AR, MR and TR 4. Hyperlipidemia A. LDL 39, 11/2021 5. Prior CVA A. Head CT, 03/02/2023, no acute process. Chronic left frontal lobe infarct. Moderate small vessel disease. 6. Carotid artery disease A. Carotid duplex, 11/2021, less than 50% stenosis bilaterally History of present illness: Mr. Bronson is a 82-year-old male with a past medical history of Parkinson's, HTN and Hyperlipidemia. He presents to [facility] due to he and his falling in the home.? The patient was seen on admission in the ER.? He reports that his fell and then he fell trying to help her.? He reports that he is having falls frequently.? He called 911.? Per ER Physician EMS reported unsafe living conditions on arrival.? Both the and were brought into the ER for evaluation.? In the ER the patient was found to have an abrasion on his left forehead.? He underwent multiple imaging that included a CT of the head, cervical, lumbar spine and chest that showed no acute findings.? CBC and CMP were unremarkable.? Troponin was slightly elevated at 0.06.? The patient will be admitted with initial impression fall.? Conditioner Tumbler Operator will be consulted for APS evaluation.? The above per Dangelo Hood DNP for the Hospitalist service Patient is a poor historian but does relate falling last evening trying to help his . He does relate recent increasing weakness but denies any chest pain, pressure or tightness. EKG shows sinus rhythm with left axis deviation at a rate of [address] segment changes. Tmax 0.06 and trending down. [facility] Disclaimer: The information contained in this section may have been updated after the patient was seen, as this information can be updated by other users. Medical History Hyperlipidemia Hypertension Parkinson disease Surgical History H/O hand surgery Social History Smoking Status: Never smoker alcohol intake: never current occupational status: retired Travel in the last 8 weeks: None household members: spouse housing: house Review of Systems Review of Systems Review of systems:: pertinent systems reviewed and negative unless documented below *Cardiovascular Cardiovascular: Denies chest pain and Reports dyspnea on exertion *Respiratory Respiratory: Reports dyspnea on exertion *Gastrointestinal Gastrointestinal: Denies vomiting *Musculoskeletal Musculoskeletal: Reports abnormal gait *Neurologic Neurologic: Reports abnormal gait and Reports other (Fall with head injury and headache) Exam Data for Last 24 hours Vital signs and Labs for Last 24 Hours: Temp Pulse Resp BP Pulse Ox 97.9 F 70 16 167/93 H 95 03/03/23 07:37 03/03/23 08:00 03/03/23 07:37 03/03/23 07:37 03/03/23 07:37 Laboratory Results - last 24 hr 03/02/23 22:30: WBC 7.9, RBC 4.86, Hgb 15.6, Hct 47.1, MCV 96.8 H, MCH 32.1 H, MCHC 33.2, RDW 13.5, Plt Count 221, MPV 7.7, Neut % (Auto) 72.9, Lymph % (Auto) 18.1, [place] % (Auto) 8.1, Eos % (Auto) 0.5, Baso % (Auto) 0.3, Neut # (Auto) 5.7, Lymph # (Auto) 1.4, [place] # (Auto) 0.6, Eos # (Auto) 0.0, Baso # (Auto) 0.0 03/02/23 22:30: [place]
--- NOTE | 2023-03-03 10:41 | DIET.NUTRFU ---
Patient indicated during nursing interview he has swallowing issues. When this RD interviewed him he indicated he recently got he esophagus stretched and swallowing issues have resolved. He practices a regular diet at home with good intake, cooks. Cardiac is following and planning on having a cardiac cath completed today, continue NPO for procedure.
--- NOTE | 2023-03-03 11:27 | SW/DCPLANNER ---
Addendum entered by [facility] 03/06/23 14:15: [facility]: I have updated Jada w/ [facility]. Jada stated that she has spoke with this patient and is able to accept for home health services. Addendum entered by [facility] 03/06/23 11:37: [facility] can not accept this patient due to staffing issues. Patient information/order has been faxed to Candace w/ [facility]. Addendum entered by [facility] 03/06/23 11:27: [facility] is out of network for patient's location. Patient information has been faxed to [facility]. Addendum entered by [facility] 03/06/23 09:36: Patient/spouse are agreeable to home health services and prefer to use [facility]. Patient information/order has been faxed to [facility] this AM. I will follow up with Jada at [facility] once information/order is reviewed. Addendum entered by [facility] 03/03/23 15:36: I spoke with patient's daughter this afternoon regarding concern for home situation for her father. I explained to her that PT/OT recommended SNF or home w/ home health for this patient. I also explained that if patient is agreeable I could do placement but would be private pay or Medicaid pending. The plan at this point is for patient to discharge home tomorrow pending no setbacks w/ home health services. I also informed daughter of Central Intake phone number incase APS referral needs to made in the future. Daughter had no further questions at this time. Home health services will be arranged at time of discharge. Original Note: I spoke with patient this AM regarding home situation and plans once medically stable for discharge. Patient was able to answer all questions: name, birthday, location and year. Patient stated that his fell at home and when he tried to help her up he fell. Patient stated that he does well at home and does not use any ambulatory assistance. Patient stated that his drives, does the grocery shopping and housework. At this point APS does not need to be consulted due to patient being alert and oriented. The plan for this patient is to discharge home tomorrow w/ pending no setbacks. Patient did not need any further needs at home.
--- NOTE | 2023-03-03 12:48 | PC.NURSE ---
1008 called and spoke with pt son, notified him of pt admission to [facility]. pt is recommended/ordered to have a heart cath. pt not alert and oriented at this time. pt is inpatient as well and unable to consent. pt son provided consent at this time, consent verified over phone with geena LINARES.
--- NOTE | 2023-03-03 12:54 | PC.NURSE ---
0920 notified [facility] that pt bp was elevated 167/93. no new orders pt has htn history and has a cardiology consult.
--- NOTE | 2023-03-03 13:50 | PC.NURSE ---
Addendum entered by Kenna Decker RN 03/03/23 15:24: pt returned to floor at 1515 Original Note: 1325 pt off unit with labor economics teacher staff.
--- NOTE | 2023-03-03 13:51 | PC.NURSE ---
notified Dr Ortez at 1345 that during med passes pt is noted to cough after drinks of water. new order at this time, swallow eval
--- NOTE | 2023-03-03 15:33 | PC.NURSE ---
report received from Luis E Sal RN at 0613
--- NOTE | 2023-03-03 18:37 | PC.NURSE ---
COURTESY TECH NOTE; ROUNDED ON PT, ASSISTED PRIMARY TECH TO CHANGE BRIEF AND REPOSITION PT. CALL LIGHT WITHIN REACH, NO FURTHER REQUESTS AT THIS TIME Antonio CANDELARIO, REBEL
--- NOTE | 2023-03-03 18:47 | HMH.SLDYSPHA ---
Speech & Language Evaluation Speech/Language Dysphagia Evaluation Start: 03/03/23 18:29 Freq: ONCE Status: Active Protocol: Document 03/03/23 18:29 ASHLEY (Rec: 03/03/23 18:46 ASHLEY [id number]) Dysphagia Assess/Goals/Plan Assessment Date of Evaluation: 03/03/23 Evaluation Type Initial Certification Assessment/Problems CSE completed per MD order Does Patient Qualify for Service No Qualify/Failure Comment Based on the clinical observations made throughout the clinical bedside swallow evaluation, mastication and swallowing appear to be WFL. Skilled speech therapy services are not warranted at this time. Recommendations PHYSICIAN CERTIFICATION: The specified therapy services are required, authorized, and reviewed every 30 days. Diet Recommendations Normal Liquid Type Recommendations Normal/Thin SL Swallow Guidelines Standard Aspiration Prec. Dysphagia Swallow Precautions/Strategies Sitting Upright (90 deg),No Straw,Small Bites and Sips, Alternate Liquids/Solids Place Food on Either side of Mouth Plan Pt/Guardian verbally ack understanding Yes of dx/prognosis/goals G -code Required No Education Instructions provided Discussed results of CSE, aspiration precautions, and diet recommendations to pt, nursing, and hospitalist all of which expressed understanding. Pt/Caregiver able to recall information Able to recall/restate Reinforcement needed No Speech & Language HPI History Present Illness Description of Patient Problem WORK ORDER SORTING CLERK pulled following information from ER documentation, Mr. Bronson is a 82-year-old male with a past medical history of Parkinson' s, HTN and Hyperlipidemia. He presents to [facility] due to he and his falling in the home. Chest X-Ray and CT impressions of scattered minor atelectatic changes otherwise lung hunter are clear and no pleural effusions. Pt/Caregiver Concerns Pt has hx of reported difficulty with swallowing per
--- NOTE | 2023-03-03 21:45 | EXP.PN ---
Subjective *Date: 03/03/23 *Time: 21:45 Interval history: pt agrees to home health. denies any new issues. cardiac cath done today Exam Data for Last 24 hours Vital signs and Labs for Last 24 Hours: Temp Pulse Resp BP Pulse Ox 97.9 F 100 H 18 98/74 L 96 03/03/23 16:00 03/03/23 19:00 03/03/23 19:00 03/03/23 19:00 03/03/23 19:00 Laboratory Results - last 24 hr 03/02/23 22:30: WBC 7.9, RBC 4.86, Hgb 15.6, Hct 47.1, MCV 96.8 H, MCH 32.1 H, MCHC 33.2, RDW 13.5, Plt Count 221, MPV 7.7, Neut % (Auto) 72.9, Lymph % (Auto) 18.1, [place] % (Auto) 8.1, Eos % (Auto) 0.5, Baso % (Auto) 0.3, Neut # (Auto) 5.7, Lymph # (Auto) 1.4, [place] # (Auto) 0.6, Eos # (Auto) 0.0, Baso # (Auto) 0.0 03/02/23 22:30: Sodium 140, Potassium 4.4, Chloride 102, Carbon Dioxide 27, Anion Gap 15.4 H, BUN 19, Creatinine 1.00, Estimated Creat Clear 66, Estimated GFR 72, Est GFR ( Amer) 87, Glucose 119 H, Calcium 9.6, Total Bilirubin 1.2, AST 39, ALT 19, Alkaline Phosphatase 113, Total Protein 9.1 H D, Albumin 4.7, Globulin 4.4 H, Albumin/Globulin Ratio 1.1 03/02/23 22:30: PT 10.0 L, INR 0.92, APTT 27.0 03/02/23 22:30: Sodium 141, Potassium 4.4, Chloride 102, Carbon Dioxide 27, Anion Gap 16.4 H, BUN 19, Creatinine 1.00, Estimated Creat Clear 66, Estimated GFR 72, Est GFR ( Amer) 87, Glucose 120 H, Calcium 9.6, Total Bilirubin 1.1, AST 39, ALT 18, Alkaline Phosphatase 112, Total Creatine Kinase 137, Troponin I 0.06 H, Total Protein 8.9 H, Albumin 4.7, Globulin 4.2 H, Albumin/Globulin Ratio 1.1 03/02/23 22:30: Plasma/Serum Alcohol < 10 03/03/23 00:45: Urine Color Yellow, Urine Appearance Clear, Urine pH 6.5, Ur Specific [place] <= 1.005, Urine Protein Negative, Urine Glucose (UA) Negative, Urine Ketones Trace, Urine Blood Trace-i, Urine Nitrate Negative, Urine Bilirubin Negative, Urine Urobilinogen 0.2, Ur Leukocyte Esterase Negative, Urine RBC 5-10, Urine WBC 3-5, Ur Squamous Epith Cells Occasional, Urine Bacteria 1+, Urine Mucus 1+ 03/03/23 00:45: Urine Opiates Screen Negative, Urine Methadone Screen Negative, Ur Barbituates Screen Negative, Ur Phencyclidine Scrn Negative, Ur Amphetamines Screen Negative, U Benzodiazepines Scrn Negative, Urine Cocaine Screen Negative, U Marijuana (THC) Screen Negative 03/03/23 01:40: SARS-CoV-2 (PCR) Not detected, Influenza A Untype (PCR) Not detected, Influenza Type B (PCR) Not detected 03/03/23 01:55: Troponin I 0.05 H 03/03/23 06:12: Troponin I 0.04 H 03/03/23 07:50: Troponin I 0.04 H I & O for Last 24 hours: Intake & Output 02/28/23 03/01/23 03/02/23 03/03/23 23:59 23:59 23:59 23:59 Intake Total 305 / 305 Output Total 100 / 100 Balance 205 / 205 Weight 81.647 kg 77.79 kg *Routine HEENT Exam Head: Present normocephalic Eye: Present EOMI and normal accommodation *Routine Neck Exam Neck: Present supple and full ROM *Routine Respiratory Exam Respiratory: Present CTA bilaterally; Absent accessory muscle use *Routine Cardiovascular Exam Cardiovascular: Present RRR, Normal S1 and Normal S2 *Routine Abdominal Exam Abdominal: Present soft and normoactive bowel sounds *Routine Rectal Exam Comments: deferred *Routine Exam Comments: deferred *Routine Extremities Exam Extremities: Present full ROM and normal capillary refill Assessment and Plan *Assessment and plan (1) Hyperlipidemia: Status: Acute Category: Medical Code(s): E78.5 - Hyperlipidemia, unspecified (2) Hypertension: Status: Acute Category: Medical Code(s): I10 - Essential (primary) hypertension (3) CAD (coronary artery disease): Status: Chronic Qualifiers: Coronary Disease-Associated Artery/Lesion type: [place] artery [place] vs. transplanted heart: [place] heart Associated angina: with other forms of angina Qualified Code(s): I25.118 - Atherosclerotic heart disease of [place] coronary artery with other forms of angina pectoris Category: Medical Code(s): I25.10 -
[2023-03-04] VITALS: BP 99/69; PULSE 83; PULSE 93; RESP 18; TEMP 36.9; O2SAT 99
[2023-03-04 04:00] VITALS: BP 141/83; PULSE 70; PULSE 75; RESP 18; TEMP 37.2; O2SAT 97; BMI 24.3
--- NOTE | 2023-03-04 04:09 | PC.NURSE ---
PATIENT HAD CARDIAC CATH YESTERDAY WITHOUT COMPLICATIONS. GAUZE AND TEGADERM TO RIGHT GROIN C/D/I, NO SIGN OF BLEEDING. TEGADERM TO RIGHT WRIST ATTEMPT SITE INTACT, NO ACTIVE BLEEDING. HAS SOME BRUISING AT THIE INNER WRIST. DENIES PAIN. BED ALARM ON. VITAL SIGNS STABLE, AFEBRILE. PLEASANTLY CONFUSED. KNOWS NAME AND KNOWS H. EVERYTHING ELSE WAS OFF OR INCORRECT.
[2023-03-04 08:00] VITALS: PULSE 100
[2023-03-04 08:01] LABS: Basophils % 0.5 % (0.1-2.0); Eosinophils # 0.2 K/mm3 (0.0-0.4); Eosinophils % 3.1 % (0.1-12.0); Hematocrit 42.9 % (42.0-52.0); Hemoglobin 14.1 g/dL (14.1-18.0); Lymphocytes # 1.3 K/mm3 (0.7-4.5); Lymphocytes % 25.7 % (10-50); Mean Corpuscular HGB Conc 32.9 g/dL (31.8-35.4); Mean Corpuscular Hemoglobin 32.1 pg (27.0-31.2); Mean Corpuscular Volume 97.6 fl (80-94); Mean Platelet Volume 7.7 fl (7.4-10.4); Monocytes # 0.4 K/mm3 (0.1-1.0); Monocytes % 8.4 % (1.7-9.3); Neutrophils # 3.2 K/mm3 (1.8-7.8); Neutrophils % 62.2 % (37.0-80.0); Platelet Count 171 K/mm3 (142-424); Red Cell Distribution Width 13.4 % (11.5-17.5); White Blood Count 5.2 K/mm3 (4.8-10.8)
[2023-03-04 08:05] LABS: Chloride 103 mmol/L (98-107); Potassium 3.6 mmoL/L (3.5-5.1); Sodium 139 mmol/L (136-145)
[2023-03-04 08:08] LABS: Alanine Aminotransferase 10 U/L (12-78); Albumin Level 4.1 g/dl (3.5-5.0); Albumin/Globulin Ratio 1.2 (1.1-1.8); Alkaline Phosphatase 99 U/L (38-126); Anion Gap 12.6 mEq/L (5-15); Aspartate Amino Transferase 29 U/L (17-59); Bilirubin,Total 1.1 mg/dl (0.2-1.3); Blood Urea Nitrogen 16 mg/dl (9-20); Calcium 8.6 mg/dl (8.4-10.2); Carbon Dioxide 27 mmol/L (22.0-30.0); Creatinine Clearance Estimated 63 mL/min (50-200); Estimated Glomerular Filt Rate 81 ml/min (>60); GFR (African American) 98 ML/MIN (>60); Globulin 3.4 g/dL (1.3-3.2); Glucose 85 mg/dl (74-100); Total Protein,Serum 7.5 g/dl (6.3-8.2)
[2023-03-04 08:09] LABS: Magnesium 2.2 mg/dl (1.6-2.3)
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
--- NOTE | 2023-03-04 09:55 | PC.NURSE ---
spoke with pts son regarding pt discahrge. He will be here to get him @ 12
--- NOTE | 2023-03-04 11:18 | PC.NURSE ---
spoke with and son regarding pt discahrge. Educated on safe swallowing as well as follow up appts. Saline lock discontinued. Will send home medications and belongins with him upon discahrge
--- NOTE | 2023-03-04 12:42 | HMH.PHAINT1 ---
Pharmacy Intervention Comments: DISCHARGE MEDICATION COUNSELING PROVIDED. DISCUSSED STARTING ATORVASTATIN. BEST TAKEN AT BEDTIME, FOR CHOLESTEROL, WATCH FOR MUSCLE PAIN/WEAKNESS AND IF THIS OCCURS TALK TO THE MD. NO QUESTIONS VERBALIZED AT THIS TIME.
== END 2023-03-04 12:41 | disposition home health service (06) ==
LOC: ER 22:45 → 2ND 03-03 02:02
PROVIDERS: Internal Medicine; Nurse Practitioner Family; Admitting Provider Internal Medicine; Emergency Provider Emergency Medicine; Visit Provider Internal Medicine
DX: S00.83XA Contusion of other part of head, initial encounter (principal); I21.4 Non-ST elevation (NSTEMI) myocardial infarction; G20 Parkinson's disease; I25.118 Atherosclerotic heart disease of native coronary artery with other forms of angina pectoris; I10 Essential (primary) hypertension; E78.2 Mixed hyperlipidemia; E78.5 Hyperlipidemia, unspecified; R29.6 Repeated falls; Z79.899 Other long term (current) drug therapy; I65.23 Occlusion and stenosis of bilateral carotid arteries; I25.2 Old myocardial infarction; Z95.5 Presence of coronary angioplasty implant and graft; W03.XXXA Other fall on same level due to collision with another person, initial encounter; Z91.81 History of falling; Y92.018 Other place in single-family (private) house as the place of occurrence of the external cause
CPT/HCPCS: G0378; 36415; 70470; 71045; 71250; 72125; 72128; 72131; 72170; 74176; 80053; 80305; 81001; 82550; 83735; 84484; 85025; 85610; 85730; 87635; 87636; 92610; 93005; 93041; 93458; 97163; 97530; 99152; 99285; C1725; C1769; C9803; J1644; Q9967; U0003; U0005